=== PATIENT | female | born 1965 | race Caucasian/White ===

== ENCOUNTER 2016-11-07 10:42 | Emergency (ER) | payer OTHER ==
[~2016-11-07] VITALS: Ht 154.9 cm; Wt 73.5 kg
[~2016-11-07 10:42] MED LIST: ALPR0.5T PO; ALPR1TAB2 PO; AMOX875T PO; BUPR150T15 PO; BUSP5POW MC; ERGO500012 PO; IBUP400T PO; OMEP20CA9 PO; OXYC-250 PO; OXYC10TA PO; PARO10OR3 PO; PARO20TA55 PO; PHEN1POW MC; SIMV40TA3 PO; SULF1TAB24 PO; buspar; cholesterol med PO; ibuprofen
--- NOTE | 2016-11-07 11:19 | ED.ADGEN ---
Past History Past Medical History: Depression, GERD, High Cholesterol, Kidney Stones, Other Past Surgical History: No Surgical History, Appendectomy, Cholecystectomy, Hysterectomy, Oophorectomy Smoking: Cigarettes Alcohol Use: Occasionally Drug Use: None Adult General HPI HPI Patient is a 51-year-old female presents emergency department with 1 week history of abdominal pain, back pain, nausea, and vomiting. She has been seen twice at an outside facility. Diagnoses as pyelonephritis and started on Levaquin. She had large workups both times that were otherwise unrevealing. Patient reports that she continues to have nausea and decreased appetite. She has not had a bowel movement in 5 days. Currently, still taking Levaquin. Review of Systems Review of Systems Constitutional: Denies fever or chills [] Eyes: Denies change in visual acuity, redness, or eye pain [] HENT: Denies nasal congestion or sore throat [] Respiratory: Denies cough or shortness of breath [] Cardiovascular: No additional information not addressed in HPI [] GI: Denies abdominal pain, nausea, vomiting, bloody stools or diarrhea [] : Denies dysuria or hematuria [] Musculoskeletal: Denies back pain or joint pain [] Integument: Denies rash or skin lesions [] Neurologic: Denies headache, focal weakness or sensory changes [] Endocrine: Denies polyuria or polydipsia [] Current Medications Current Medications Current Medications Medications (Trade) Dose Ordered Sig/Audrey Start Time Stop Time Status Last Admin Dose Admin Ondansetron HCl (Zofran) 4 mg 1X ONCE 11/07/16 11:30 11/07/16 11:31 DC 11/07/16 11:32 4 MG Sodium Chloride (Iv Sodium Chloride 0.9% 1,000ml) 1,000 ml @ 1,000 mls/hr 1X ONCE 11/07/16 11:30 11/07/16 12:29 11/07/16 11:32 1,000 MLS/HR Allergies Allergies Allergies Coded Allergies Type Severity Reaction Last Updated Verified naproxen Allergy Mild Rash 02/17/15 No Physical Exam Physical Exam Constitutional: Well developed, well nourished, no acute distress, non-toxic appearance. [] HENT: Normocephalic, atraumatic, bilateral external ears normal, oropharynx moist, no oral exudates, nose normal. [] Eyes: PERRLA, EOMI, conjunctiva normal, no discharge. [] Neck: Normal range of motion, no tenderness, supple, no stridor. [] Cardiovascular:Heart rate regular rhythm, no murmur [] Lungs & Thorax: Bilateral breath sounds clear to auscultation [] Abdomen: Bowel sounds normal, soft, diffuse tenderness to palpation without peritoneal signs, no masses, no pulsatile masses. [] Skin: Warm, dry, no erythema, no rash. [] Back: No tenderness, no CVA tenderness. [] Extremities: No tenderness, no cyanosis, no clubbing, ROM intact, no edema. [] Neurologic: Alert and oriented X 3, normal motor function, normal sensory function, no focal deficits noted. [] Psychologic: Affect normal, judgement normal, mood normal. [] Current Patient Data Vital Signs Vital Signs Date Time Temp Pulse Resp B/P Pulse Ox O2 Delivery O2 Flow Rate FiO2 11/07/16 10:42 98.1 108 20 98 Room Air EKG EKG [] Radiology/Procedures Radiology/Procedures KUB interpreted by me, significant amount of stool. [] Course & Med Decision Making Course & Med Decision Making Pertinent Labs and Imaging studies reviewed. (See chart for details) Patient has a exam consistent with constipation given her narcotic and Zofran uses is not surprising. I did offer the patient an enema here in the emergency Department and she declined. She want to go home and take mag citrate and attempt a fleets enema there. She will of course return to emergency department sooner she develops any new or worsening symptoms. [] Final Impression Final Impression Constipation [] Problems: Dragon Disclaimer Dragon Disclaimer This electronic medical record was generated, in whole or in part, using a voice recognition dictation system. CHINYERE HARRIS MD Nov 07, 2016 11:19
[2016-11-07] MEDS ORDERED: IV NORMAL SALINE 1,000ML 1,000 ML IV ONE (11:30)
[2016-11-07] MEDS ORDERED: ONDANSETRON PF 4 MG/2 ML VIAL. IV ONE (11:30)
--- NOTE | 2016-11-07 12:05 | RAD ---
Acute abdomen series History: Diffuse abdominal pain, nausea and vomiting. Comparison: March 07, 2015. Findings: Frontal view of the chest. Cardiac silhouette appears within normal limits for size. No pneumoperitoneum or pneumothorax is identified. No acute infiltrate is seen. Supine and upright views of the abdomen. No dilated loops of bowel are seen. Cholecystectomy clips are present. Moderate colonic stool seen. Suture material is seen within the pelvis. Impression: No acute abnormality identified in the chest or abdomen.
[2016-11-07 12:20] VITALS: BP 133/77
== END 2016-11-07 12:25 | disposition home or self-care (01) ==
LOC: ER 10:42
DX: K59.00 Constipation, unspecified (principal); R11.2 Nausea with vomiting, unspecified; M54.9 Dorsalgia, unspecified; K21.9 Gastro-esophageal reflux disease without esophagitis; E78.00 Pure hypercholesterolemia, unspecified; F17.210 Nicotine dependence, cigarettes, uncomplicated; Z87.442 Personal history of urinary calculi; Z90.49 Acquired absence of other specified parts of digestive tract; Z90.710 Acquired absence of both cervix and uterus; Z90.721 Acquired absence of ovaries, unilateral; Z88.6 Allergy status to analgesic agent
CPT/HCPCS: 74022; 96374; 99284; J2405; 96361; J7030

== ENCOUNTER 2017-01-04 17:19 | Emergency (ER) | payer OTHER ==
[~2017-01-04] VITALS: Ht 154.9 cm; Wt 76.8 kg
[~2017-01-04 17:19] MED LIST changes: -ERGO500012 PO; +ERGO500027 PO; -IBUP400T PO; +IBUP400T18 PO; -OXYC-250 PO; +OXYC-328 PO; -PARO20TA55 PO; +PARO20TA99 PO
[2017-01-04] MEDS ORDERED: IV NORMAL SALINE 1,000ML 1,000 ML IV SCH (18:25)
[2017-01-04] MEDS ORDERED: fentaNYL PF 100 MCG/2 ML VIAL IV PRN (18:30)
--- NOTE | 2017-01-04 18:32 | ED.ADGEN ---
Past History Past Medical History: GERD, High Cholesterol, Migraines Past Surgical History: Appendectomy, Hysterectomy, Other Smoking: Cigarettes Alcohol Use: None Drug Use: None Adult General Chief Complaint Chief Complaint Abdominal pain HPI HPI Patient is a 51 year old and female who presents with epigastric pain for the last 2 days. She states it's constant in nature and is made worse right after she eats. He states it feels better when she lays on her right side. She points her epigastric area. She states she's been constipated for the last 2 days and hasn't had any bowel movement. She states she has vomited several times. She denies any fevers chills. She has had a appendectomy, cholecystectomy, hysterectomy in the past. She saw Dr. Gomez today who wanted to be evaluated in the ER. The sig narcotic pain medicines for her migraines but states she hasn't done that for 2-3 days. Showing doesn't once or twice a week. Review of Systems Review of Systems Constitutional: Denies fever or chills [] Eyes: Denies change in visual acuity, redness, or eye pain [] HENT: Denies nasal congestion or sore throat [] Respiratory: Denies cough or shortness of breath [] Cardiovascular: No additional information not addressed in HPI [] GI: Denies bloody stools or diarrhea, positive for abdominal pain, nausea, vomiting, : Denies dysuria or hematuria [] Musculoskeletal: Denies back pain or joint pain [] Integument: Denies rash or skin lesions [] Neurologic: Denies headache, focal weakness or sensory changes [] Endocrine: Denies polyuria or polydipsia [] Current Medications Current Medications Current Medications Medications (Trade) Dose Ordered Sig/Audrey Start Time Stop Time Status Last Admin Dose Admin Fentanyl Citrate (Fentanyl 2ml Vial) 50 mcg PRN Q15MIN PRN 01/04/17 18:30 01/05/17 18:29 01/04/17 19:02 50 MCG Info (Do NOT chart on this entry -- for MONITORING) 1 each PRN DAILY PRN 01/04/17 18:45 01/06/17 18:44 Iohexol (Omnipaque 300 Mg/ml) 75 ml 1X ONCE 01/04/17 18:45 01/04/17 18:46 DC 6/1/17 19:13 75 ML Sodium Chloride 1,000 ml @ 1,000 mls/hr Q1H 01/04/17 18:25 01/04/17 19:24 DC 01/04/17 19:01 1,000 MLS/HR Allergies Allergies Allergies Coded Allergies Type Severity Reaction Last Updated Verified naproxen Allergy Mild Rash 02/17/15 No Physical Exam Physical Exam Constitutional: Well developed, well nourished, no acute distress, non-toxic appearance. [] HENT: Normocephalic, atraumatic, bilateral external ears normal, oropharynx moist, no oral exudates, nose normal. [] Eyes: PERRLA, EOMI, conjunctiva normal, no discharge. [] Neck: Normal range of motion, no tenderness, supple, no stridor. [] Cardiovascular:Heart rate regular rhythm, no murmur [] Lungs & Thorax: Bilateral breath sounds clear to auscultation [] Abdomen: Bowel sounds hyperactive and high-pitched, soft, mild tenderness palpation diffusely, no rebound or guarding, no masses, no pulsatile masses. [] Skin: Warm, dry, no erythema, no rash. [] Back: No tenderness, no CVA tenderness. [] Extremities: No tenderness, no cyanosis, no clubbing, ROM intact, no edema. [] Neurologic: Alert and oriented X 3, normal motor function, normal sensory function, no focal deficits noted. [] Psychologic: Affect normal, judgement normal, mood normal. [] Current Patient Data Vital Signs Vital Signs Date Time Temp Pulse Resp B/P (MAP) Pulse Ox O2 Delivery O2 Flow Rate FiO2 01/04/17 19:02 20 98 Room Air 01/04/17 17:51 98.4 65 Lab Results Laboratory Tests Test 01/04/17 18:55 01/04/17 19:10 White Blood Count 13.3 x10^3/uL (4.0-11.0) H Red Blood Count 4.88 x10^6/uL (3.50-5.40) Hemoglobin 14.1 g/dL (12.0-15.5) Hematocrit 42.0 % (36.0-47.0) Mean Corpuscular Volume 86 fL (79-100) Mean Corpuscular Hemoglobin 29 pg (25-35) Mean Corpuscular Hemoglobin Concent 34 g/dL (31-37) Red Cell Distribution Width 14.3 % (11.5-14.5) Platelet Count 300 x10^3/uL (140-400) Neutrophils (%) (Auto) 62 % (31-73) Lymphocytes (%) (Auto) 29 % (24-48) Monocytes (%) (Auto) 7 % (0-9) Eosinophils (%) (Auto) 1 % (0-3) Basophils (%) (Auto) 1 % (0-3) Neutrophils # (Auto) 8.2 x10^3uL (1.8-7.7) H Lymphocytes # (Auto) 3.9 x10^3/uL (1.0-4.8) Monocytes # (Auto) 0.9 x10^3/uL (0.0-1.1) Eosinophils # (Auto) 0.2 x10^3/uL (0.0-0.7) Basophils # (Auto) 0.1 x10^3/uL (0.0-0.2) Prothrombin Time 10.0 SEC (9.4-11.4) Prothrombin Time INR 1.0 (0.9-1.1) PTT 26 SEC (23-33) Sodium Level 138 mmol/L (136-145) Potassium Level 4.1 mmol/L (3.5-5.1) Chloride Level 102 mmol/L (98-107) Carbon Dioxide Level 30 mmol/L (21-32) Anion Gap 6 (6-14) Blood Urea Nitrogen 10 mg/dL (7-20) Creatinine 0.8 mg/dL (0.6-1.0) Estimated GFR (Cockcroft-Gault) 75.6 BUN/Creatinine Ratio 13 (6-20) Glucose Level 85 mg/dL (70-99) Calcium Level 8.9 mg/dL (8.5-10.1) Total Bilirubin 0.3 mg/dL (0.2-1.0) Aspartate Amino Transferase (AST) 13 U/L (15-37) L Alanine Aminotransferase (ALT) 28 U/L (14-59) Alkaline Phosphatase 135 U/L (46-116) H Creatine Kinase 52 U/L (26-192) Creatine Kinase MB (Mass) < 0.5 ng/mL (0.0-3.6) Creatine Kinase MB Relative Index 1.0 % (0-4) Troponin I Quantitative < 0.017 ng/mL (0-0.055) Total Protein 7.3 g/dL (6.4-8.2) Albumin 3.7 g/dL (3.4-5.0) Albumin/Globulin Ratio 1.0 (1.0-1.7) Lipase 81 U/L (73-393) Urine Collection Type Unknown Urine Color Yellow Urine Clarity Hazy Urine pH 7.0 Urine Specific [place] 1.010 Urine Protein Neg (NEG-TRACE) Urine Glucose (UA) Neg mg/dL (NEG) Urine Ketones (Stick) Neg mg/dL (NEG) Urine Blood Trace (NEG) Urine Nitrite Neg (NEG) Urine Bilirubin Neg (NEG) Urine Urobilinogen Dipstick 0.2 mg/dL (0.2 mg/dL) Urine Leukocyte Esterase Neg (NEG) Urine RBC 1-2 /HPF (0-2) Urine WBC 1-4 /HPF (0-4) Urine Squamous Epithelial Cells Mod /LPF Urine Bacteria 0 /HPF (0-FEW) Urine Mucus Mod /LPF Urine Opiates Screen Pos (NEG) Urine Methadone Screen Neg (NEG) Urine Barbiturates Neg (NEG) Urine Phencyclidine Screen Neg (NEG) Urine Amphetamine/Methamphetamine Neg (NEG) Urine Benzodiazepines Screen Pos (NEG) Urine Cocaine Screen Neg (NEG) Urine Cannabinoids Screen Neg (NEG) Urine Ethyl Alcohol Neg (NEG) EKG EKG EKG shows sinus rhythm with rate of [address] elevations or T-wave inversions, normal axis, normal axis, QTC 447, as interpreted by me. Radiology/Procedures Radiology/Procedures [address] [address] IMAGING REPORT Signed PATIENT: SANTI MIRANDA ACCOUNT: [id number] : 1965 LOCATION: ER AGE: 51 SEX: F EXAM STATUS: REG ER ORD. PHYSICIAN: SHANIKA LITTLEJOHN MD REASON: pain PROCEDURE: CT ABD PELV W/ IV CONTRST ONLY INDICATION: MID-UPPER ABD PAIN, N/V/D, HX MARCIE, APPY, HYSTER COMPARISON: August 06, 2013 TECHNIQUE: Axial CT images were obtained through the abdomen and pelvis with intravenous contrast. One or more of the following individualized dose reduction techniques were utilized for this examination: 1. Automated exposure control; 2. Adjustment of the mA and/or kV according to patient size; 3. Use of iterative reconstruction technique. FINDINGS: Abdomen: Chest Base: Partially imaged without gross abnormality. Vessels: Mild to moderate calcific atherosclerosis. Liver/Biliary: Postcholecystectomy changes with minimal prominence of biliary tree which is commonly seen postcholecystectomy. Pancreas: No peripancreatic edema. Spleen: Normal. Kidneys/Adrenal: No hydronephrosis. GI: No free air. No bowel dilation to suggest obstruction. Pelvis: Bladder: No definite adjacent inflammation. Degenerative changes spine IMPRESSION: 1. No dilated loops of bowel suggest obstruction. Electronically signed by: Laquita Gage MD (01/04/2017 7:48 PM) DICTATED AND SIGNED BY: LAQUITA GAGE MD DATE: 01/04/171941 CC: SHANIKA LITTLEJOHN MD; PCP,NO ~ Course & Med Decision Making Course & Med Decision Making Pertinent Labs and Imaging studies reviewed. (See chart for details) Labs, CT scan does not show any acute abnormalities. She does have a lot of stool the CT scan and this could be secondary to constipation. Spoke with Dr. Doyle whose okay the patient be discharged home and follow-up as an outpatient. The patient states she has pain meds at home. She is agreeable being discharged home. I did offer admission however she feels more comfortable going home. Return precautions given for worsening pain, uncontrolled nausea vomiting, fevers or other concerns. Final Impression Final Impression Abdominal pain Problems: Dragon Disclaimer Dragon Disclaimer This electronic medical record was generated, in whole or in part, using a voice recognition dictation system. SHANIKA LITTLEJOHN MD Jan 04, 2017 18:32
[2017-01-04] MEDS ORDERED: IOHEXOL 300 MG/ML 75 ML VIAL. IV ONE (18:45)
[2017-01-04] MEDS ORDERED: CONTRAST GIVEN MC PRN (18:45)
[2017-01-04 19:14] LABS: BASO # 0.1 x10^3/uL (0.0-0.2); BASO % 1 % (0-3); EOS # 0.2 x10^3/uL (0.0-0.7); EOS % 1 % (0-3); HEMOGLOBIN 14.1 g/dL (12.0-15.5); LYMPH # 3.9 x10^3/uL (1.0-4.8); LYMPH % 29 % (24-48); MEAN CORPUSCULAR HEMOGLOBIN 29 pg (25-35); MEAN CORPUSCULAR HGB CONC 34 g/dL (31-37); MEAN CORPUSCULAR VOLUME 86 fL (79-100); MONO # 0.9 x10^3/uL (0.0-1.1); MONO % 7 % (0-9); NEUT # 8.2 x10^3uL (1.8-7.7); NEUT % 62 % (31-73); PLATELET COUNT 300 x10^3/uL (140-400); RED BLOOD COUNT 4.88 x10^6/uL (3.50-5.40); RED CELL DISTRIBUTION WIDTH 14.3 % (11.5-14.5); WHITE BLOOD COUNT 13.3 x10^3/uL (4.0-11.0)
[2017-01-04 19:39] LABS: ALBUMIN 3.7 g/dL (3.4-5.0); ALK PHOS 135 U/L (46-116); ALT (SGPT) 28 U/L (14-59); ANION GAP 6 (6-14); AST (SGOT) 13 U/L (15-37); BLOOD UREA NITROGEN 10 mg/dL (7-20); BUN/CREATININE RATIO 13 (6-20); CALCIUM 8.9 mg/dL (8.5-10.1); CARBON DIOXIDE 30 mmol/L (21-32); CHLORIDE 102 mmol/L (98-107); CREATINE KINASE 52 U/L (26-192); CREATININE 0.8 mg/dL (0.6-1.0); GFR 75.6; GLUCOSE 85 mg/dL (70-99); LIPASE 81 U/L (73-393); POTASSIUM 4.1 mmol/L (3.5-5.1); SODIUM 138 mmol/L (136-145); TOTAL BILIRUBIN 0.3 mg/dL (0.2-1.0); TOTAL PROTEIN 7.3 g/dL (6.4-8.2)
--- NOTE | 2017-01-04 19:52 | RAD ---
INDICATION: MID-UPPER ABD PAIN, N/V/D, HX MARCIE, APPY, HYSTER COMPARISON: August 06, 2013 TECHNIQUE: Axial CT images were obtained through the abdomen and pelvis with intravenous contrast. One or more of the following individualized dose reduction techniques were utilized for this examination: 1. Automated exposure control; 2. Adjustment of the mA and/or kV according to patient size; 3. Use of iterative reconstruction technique. FINDINGS: Abdomen: Chest Base: Partially imaged without gross abnormality. Vessels: Mild to moderate calcific atherosclerosis. Liver/Biliary: Postcholecystectomy changes with minimal prominence of biliary tree which is commonly seen postcholecystectomy. Pancreas: No peripancreatic edema. Spleen: Normal. Kidneys/Adrenal: No hydronephrosis. GI: No free air. No bowel dilation to suggest obstruction. Pelvis: Bladder: No definite adjacent inflammation. Degenerative changes spine IMPRESSION: 1. No dilated loops of bowel suggest obstruction. Electronically signed by: Simón Harrison MD (01/04/2017 7:48 PM)
[2017-01-04 19:58] LABS: AMPHETAMINE/METHAMPHETAMINE NEG (NEG); BARBITURATES NEG (NEG); BENZODIAZEPINES POS (NEG); CANNABINOIDS NEG (NEG); COCAINE NEG (NEG); METHADONE NEG (NEG); OPIATES POS (NEG); PHENCYCLIDINE NEG (NEG)
[2017-01-04 20:10] LABS: BILIRUBIN,URINE NEG (NEG); CLARITY,URINE HAZY; COLOR,URINE YELLOW; GLUCOSE,URINE NEG (NEG); NITRITE,URINE NEG (NEG); UROBILINOGEN,URINE 0.2 mg/dL (0.2 mg/dL)
[2017-01-04 20:11] LABS: BACTERIA,URINE 0 /HPF (0-FEW); SQUAMOUS EPITHELIAL CELL,UR MOD /LPF
--- NOTE | 2017-01-04 21:47 | EKG ---
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 RI6.01 Unconfirmed report Compared to ECG 08/13/2015 22:47:48 No significant changes Electronically Signed On 01-10-2017 9:23:11 CDT by Bradley Martines
[2017-01-04 21:49] VITALS: BP 124/87
== END 2017-01-04 22:12 | disposition home or self-care (01) ==
LOC: ER 17:19
DX: R10.13 Epigastric pain (principal); K59.00 Constipation, unspecified; R11.10 Vomiting, unspecified; E11.9 Type 2 diabetes mellitus without complications; K21.9 Gastro-esophageal reflux disease without esophagitis; E78.00 Pure hypercholesterolemia, unspecified; G43.909 Migraine, unspecified, not intractable, without status migrainosus; F17.210 Nicotine dependence, cigarettes, uncomplicated; Z90.49 Acquired absence of other specified parts of digestive tract; Z90.710 Acquired absence of both cervix and uterus; Z88.6 Allergy status to analgesic agent
CPT/HCPCS: 36415; 74177; 80053; 80305; 81001; 82553; 83690; 84484; 85027; 85610; 85730; 93005; 96361; 96374; 99285; J3010; Q9967; G0481; J7030

== ENCOUNTER → 2017-01-25 | Outpatient (CLI) | payer OTHER ==
[2017-01-04 21:49] VITALS: BP 124/87
--- NOTE | 2017-01-25 11:47 | RAD ---
Indication upper abdominal pain. Constipation diarrhea. Recent colonoscopy. Supine and upright films of the abdomen were obtained and are compared to an examination 11/07/2016. Note is made of a CT examination of the abdomen and pelvis 3 weeks ago. The lung bases are clear. There is no free air. The abdominal gas pattern has a nonobstructive appearance. Clips are seen in the gallbladder fossa. No organomegaly or abnormal calculi are seen. IMPRESSION: No acute or significant finding seen on plain films of the abdomen
== END | disposition home or self-care (01) ==
LOC: DXRADRC 11:23
PROVIDERS: ATTEND Family Medicine
DX: K59.00 Constipation, unspecified (principal); R19.7 Diarrhea, unspecified
CPT/HCPCS: 74020

== ENCOUNTER → 2017-04-16 | Outpatient (CLI) | payer OTHER ==
--- NOTE | 2017-04-16 15:54 | RAD ---
Indication back pain. AP and lateral views of the lumbar spine were obtained as well as a coned view targeted to the lumbosacral junction. Vertebral height is well maintained. Alignment is unremarkable. There is slight disc space narrowing at L2-3 with a small anterior osteophyte at the lower and ventral aspect of L2. No acute finding is seen. IMPRESSION: Minimal degenerative change predominantly centered at L2-3
== END | disposition home or self-care (01) ==
LOC: DXRADRC 15:37
PROVIDERS: ATTEND Nurse Practitioner Family
DX: M47.896 Other spondylosis, lumbar region (principal); M25.78 Osteophyte, vertebrae
CPT/HCPCS: 72100

== ENCOUNTER 2017-05-03 14:29 | Observation (INO) | payer OTHER ==
[~2017-05-03] VITALS: Ht 154.9 cm; Wt 79.5 kg
[2017-05-03] MEDS ORDERED: 0.9 % SODIUM CHLORIDE 10 ML DISP.SYRIN. IV PRN (14:45)
[2017-05-03] MEDS ORDERED: IV NORMAL SALINE 1,000ML 1,000 ML IV SCH ×2 (15:00→17:00)
[2017-05-03] MEDS ORDERED: ASPIRIN 81 MG TAB.CHEW PO ONE (15:00)
--- NOTE | 2017-05-03 15:05 | PHYS DOC ---
Past History Past Medical History: Anxiety, GERD, High Cholesterol, Migraines Past Surgical History: Appendectomy, Hysterectomy, Other Smoking: Cigarettes Alcohol Use: None Drug Use: None Adult General Chief Complaint Chief Complaint: Neck Pain HPI HPI Patient is a pleasant 52-year-old female with a history of untreated hypertension, high cholesterol, and anxiety presents with left shoulder pain left scapular pain that began 2 hours prior to arrival. Patient has a significant family history with a father who had his first heart attack at age 37 multiple brothers and sisters who have multiple strokes unrelated to 50 and a sister who just recently had a heart attack at age 50s well. She's never had these symptoms before and recently started a new job. She denies any new shortness of breath or decreased exercise tolerance but noted today about 1:45 PM increasing aching in her left shoulder with anterior chest pain on the left. It did radiate to the lateral part of the shoulder down the arm and the posterior shoulder blade. She denies any night sweats, weight loss, cough, URI symptoms. She denies any nausea, vomiting, shortness of breath at this time. She denies any travel outside the country or recent antibiotics. She also further denies any trauma or worsening symptoms with exertion or motion. The pain is somewhat reproduced with certain direct pressure points on the upper left shoulder blade. But not exactly reproducible. At this time is 8 of 10 Differential diagnosis for chest pain: Pericarditis, myocarditis, endocarditis, pneumothorax, pneumonia, aortic dissection, esophageal spasm, esophagitis, peptic ulcer disease, acute coronary syndrome, mediastinitis, Boerhaave syndrome , musculoskeletal chest wall pain, costochondritis, intercostal strain, rib fracture, pulmonary contusion, pneumonitis, pleural effusion, pericardial effusion, pericardial tamponode, and pleurisy. Review of Systems Review of Systems Constitutional: Denies fever or chills [] Eyes: Denies change in visual acuity, redness, or eye pain [] HENT: Denies nasal congestion or sore throat [] Respiratory: Denies cough or shortness of breath [] Cardiovascular: No additional information not addressed in HPI [] GI: Denies abdominal pain, nausea, vomiting, bloody stools or diarrhea [] : Denies dysuria or hematuria [] Musculoskeletal: sHe describes some upper left shoulder pain. Integument: Denies rash or skin lesions [] Neurologic: Denies headache, focal weakness or sensory changes [] Psych: Patient does feel somewhat anxious and she's not had an attack in 10 years. Current Medications Current Medications Current Medications Medications (Trade) Dose Ordered Sig/Audrey Start Time Stop Time Status Last Admin Dose Admin Aspirin (Children'S Aspirin) 324 mg 1X ONCE 05/03/17 15:00 05/03/17 15:01 DC Sodium Chloride (Normal Saline Flush) 10 ml QSHIFT PRN 05/03/17 14:45 Allergies Allergies Allergies Coded Allergies Type Severity Reaction Last Updated Verified naproxen Allergy Mild Rash 02/17/15 No Physical Exam Physical Exam Vital signs recorded on the chart patient noted to be hypertensive. Constitutional: Well developed, well nourished, no acute distress, non-toxic appearance. [] HENT: Normocephalic, atraumatic, bilateral external ears normal, oropharynx moist, no oral exudates, nose normal. [] Eyes: PERRLA, EOMI, conjunctiva normal, no discharge. [] Neck: Normal range of motion, no tenderness, supple, no stridor. [] Cardiovascular:Heart rate regular rhythm, no murmur does have some reproducible chest wall pain on exam over the left upper chest. Patient also has tenderness palpation over the superior and medial aspect of the scapula and is somewhat reproducible. There is no external owens, no trauma no rash. Lungs & Thorax: Bilateral breath sounds clear to auscultation [] Abdomen: Bowel sounds normal, soft, no tenderness, no masses, no pulsatile masses. [] Skin: Warm, dry, no erythema, no rash. [] Back: Patient has no tenderness to palpation over the midline of the T-spine or C-spine. She does have a negative Spurling's test, but she does have tenderness to palpation over the scapula Extremities: No tenderness, no cyanosis, no clubbing, ROM intact, no edema. [] Neurologic: Alert and oriented X 3, normal motor function, normal sensory function, no focal deficits noted. [] Psychologic: Affect normal, judgement normal, mood normal. [] Current Patient Data Vital Signs Vital Signs Date Time Temp Pulse Resp B/P (MAP) Pulse Ox O2 Delivery O2 Flow Rate FiO2 05/03/17 14:29 98.0 92 18 95 Room Air Vital Signs Date Time Temp Pulse Resp B/P (MAP) Pulse Ox O2 Delivery O2 Flow Rate FiO2 05/03/17 16:15 16 98 Room Air 05/03/17 14:29 98.0 92 Lab Results Laboratory Tests Test 05/03/17 14:53 05/03/17 15:45 White Blood Count 12.1 x10^3/uL (4.0-11.0) H Red Blood Count 4.72 x10^6/uL (3.50-5.40) Hemoglobin 14.1 g/dL (12.0-15.5) Hematocrit 41.0 % (36.0-47.0) Mean Corpuscular Volume 87 fL (79-100) Mean Corpuscular Hemoglobin 30 pg (25-35) Mean Corpuscular Hemoglobin Concent 35 g/dL (31-37) Red Cell Distribution Width 13.7 % (11.5-14.5) Platelet Count 371 x10^3/uL (140-400) Neutrophils (%) (Auto) 64 % (31-73) Lymphocytes (%) (Auto) 28 % (24-48) Monocytes (%) (Auto) 7 % (0-9) Eosinophils (%) (Auto) 2 % (0-3) Basophils (%) (Auto) 1 % (0-3) Neutrophils # (Auto) 7.7 x10^3uL (1.8-7.7) Lymphocytes # (Auto) 3.3 x10^3/uL (1.0-4.8) Monocytes # (Auto) 0.8 x10^3/uL (0.0-1.1) Eosinophils # (Auto) 0.2 x10^3/uL (0.0-0.7) Basophils # (Auto) 0.1 x10^3/uL (0.0-0.2) Sodium Level 139 mmol/L (136-145) Potassium Level 3.9 mmol/L (3.5-5.1) Chloride Level 103 mmol/L (98-107) Carbon Dioxide Level 26 mmol/L (21-32) Anion Gap 10 (6-14) Blood Urea Nitrogen 8 mg/dL (7-20) Creatinine 0.7 mg/dL (0.6-1.0) Estimated GFR (Cockcroft-Gault) 87.9 BUN/Creatinine Ratio 11 (6-20) Glucose Level 93 mg/dL (70-99) Calcium Level 8.8 mg/dL (8.5-10.1) Magnesium Level 2.0 mg/dL (1.8-2.4) Total Bilirubin 0.2 mg/dL (0.2-1.0) Aspartate Amino Transferase (AST) 14 U/L (15-37) L Alanine Aminotransferase (ALT) 30 U/L (14-59) Alkaline Phosphatase 150 U/L (46-116) H Troponin I Quantitative < 0.017 ng/mL (0-0.055) [id number]-Type Natriuretic Peptide 18 pg/mL (0-124) Total Protein 7.1 g/dL (6.4-8.2) Albumin 3.7 g/dL (3.4-5.0) Albumin/Globulin Ratio 1.1 (1.0-1.7) Lipase 103 U/L (73-393) Urine Collection Type Unknown Urine Color Yellow Urine Clarity Clear Urine pH 7.0 Urine Specific [place] 1.010 Urine Protein Neg (NEG-TRACE) Urine Glucose (UA) Neg mg/dL (NEG) Urine Ketones (Stick) Neg mg/dL (NEG) Urine Blood Trace (NEG) Urine Nitrite Neg (NEG) Urine Bilirubin Neg (NEG) Urine Urobilinogen Dipstick 0.2 mg/dL (0.2 mg/dL) Urine Leukocyte Esterase Neg (NEG) Urine RBC 1-2 /HPF (0-2) Urine WBC 1-4 /HPF (0-4) Urine Squamous Epithelial Cells Few /LPF Urine Bacteria 0 /HPF (0-FEW) Urine Yeast Present /HPF EKG EKG []EKG timed to 2:36 PM read by ms Dr. Darnell demonstrates a heart rate of 92 with PMD QRS this is sinus rhythm NM interval 146 which is normal, QRS width which is 80 which is normal, QTC which is 458 which is normal patient has normal looking EKG with no ST segment T-wave changes consistent with acute ischemia. She does have a nonspecific T-wave flattening in V1 and lead 3 which may be a normal variant. There is no concordant lead flattening or evidence of ischemia. Radiology/Procedures Radiology/Procedures [] IMAGING REPORT Signed PATIENT: SANTI MIRANDA ACCOUNT: [id number] : 1965 LOCATION: ER AGE: 52 SEX: F EXAM STATUS: REG ER ORD. PHYSICIAN: RACHEL DARNELL MD REASON: shoulder and neck pain PROCEDURE: CHEST PA & LATERAL 2 views of the Chest 05/03/2017 4:45 PM Indication: shoulder and neck pain Comparison: Abdominal series November 07, 2016 Findings: Minimal discoid atelectasis appears to be present in the basilar left upper lobe . No other focal consolidation or infiltrate is identified. There is no effusion or pneumothorax. The cardiomediastinal silhouette and pulmonary vasculature are within normal limits. No osseous abnormality is identified. Impression: Minimal left basilar discoid atelectasis. DICTATED AND SIGNED BY: MIRELA ALEJO MD DATE: 05/03/171516 CC: RACHEL DARNELL MD; BEVERLY BARNARD STOCKBROKING DEALER ~ Course & Med Decision Making Course & Med Decision Making Pertinent Labs and Imaging studies reviewed. (See chart for details) patient's EKG done on arrival read by me at 2:36 PM 04/25/2017 demonstrates sinus rhythm at 92 with repeat every QRS is normal sinus rhythm with a NM interval of 146 which is normal, QRS interval is 80 which is normal QTC which 458 which is also normal. This is a normal EKG with no ST segment T-wave changes consistent with acute ischemia. Patient presents with shoulder pain, neck pain and anterior chest pain which is concerning for possible ischemic event. Patient significant family historyDifferential diagnosis for chest pain: Pericarditis, myocarditis, endocarditis, pneumothorax, pneumonia, aortic dissection, esophageal spasm, esophagitis, peptic ulcer disease, acute coronary syndrome, mediastinitis, Boerhaave syndrome, musculoskeletal chest wall pain, costochondritis, intercostal strain, rib fracture, pulmonary contusion, pneumonitis, pleural effusion, pericardial effusion, pericardial tamponode, and pleurisy. Was considered upon arrival given her family history, the heart score history was provided patient is at moderate risk based on scoring protocols I gave her slightly suspicious, normal EKG, age, significant risk factors they gave her score 4. This meant that although she was not demonstrating any signs of heart injury at this time she would benefit from inpatient observation stay serial enzymes and a cardiology evaluation. She was willing to follow-up here in the emergency department and with the refinery operator alkylation prearranged. So she's been admitted to the hospital. History: Highly suspicious 2 points moderately suspicious 1. slightly suspicious 0 point EKG: ST segment depression 2. nonspecific repolarization disturbance 1. normal 0 point Age: Greater than 65 2 points, 65-45 1., less than 45 years old 0 points Risk factors:> 3 risk factors 2 points, 1-2 risk factors one point, no risk factors 0 point Troponin: > 2 times normal 2 points, 1-2 times normal 1., normal limits 0 point Total score: Score % pts MACE/n MACE Policy 0-3 32% 1.9% 0.05% Discharge 4-6 51% 413/3136 13% 1.3% Observation Risk management 7-10 17% 518/1045 50% 2.8% Observation Treatment, CAG []Golf Course Architect note: saw superintendent physician Dr. Lori WILL Golf Course Architect called at of the service service: Approximately 4:45 PM Consult called back at 4:45 PM Discussed the case I presented and they agreed with admission. Time of acceptance for 4:45 PM Dragon Disclaimer Dragon Disclaimer This chart was dictated in whole or in part using Voice Recognition software in a busy, high-work load, and often noisy Emergency Department environment. It may contain unintended and wholly unrecognized errors or omissions. Departure Departure: Impression: Primary Impression: Chest pain Additional Impressions: Neck pain Hypertension Shoulder pain Disposition: ADMITTED INPATIENT Admitting Physician: Luis Simon Condition: GUARDED Referrals: BEVERLY BARNARD APRN (PCP) Problem Qualifiers RACHEL DARNELL MD May 03, 2017 15:05
[2017-05-03 15:16] LABS: BASO # 0.1 x10^3/uL (0.0-0.2); BASO % 1 % (0-3); EOS # 0.2 x10^3/uL (0.0-0.7); EOS % 2 % (0-3); HEMOGLOBIN 14.1 g/dL (12.0-15.5); LYMPH # 3.3 x10^3/uL (1.0-4.8); LYMPH % 28 % (24-48); MEAN CORPUSCULAR HEMOGLOBIN 30 pg (25-35); MEAN CORPUSCULAR HGB CONC 35 g/dL (31-37); MEAN CORPUSCULAR VOLUME 87 fL (79-100); MONO # 0.8 x10^3/uL (0.0-1.1); MONO % 7 % (0-9); NEUT # 7.7 x10^3uL (1.8-7.7); NEUT % 64 % (31-73); PLATELET COUNT 371 x10^3/uL (140-400); RED BLOOD COUNT 4.72 x10^6/uL (3.50-5.40); RED CELL DISTRIBUTION WIDTH 13.7 % (11.5-14.5); WHITE BLOOD COUNT 12.1 x10^3/uL (4.0-11.0)
--- NOTE | 2017-05-03 15:21 | RAD ---
2 views of the Chest 05/03/2017 4:45 PM Indication: shoulder and neck pain Comparison: Abdominal series November 07, 2016 Findings: Minimal discoid atelectasis appears to be present in the basilar left upper lobe . No other focal consolidation or infiltrate is identified. There is no effusion or pneumothorax. The cardiomediastinal silhouette and pulmonary vasculature are within normal limits. No osseous abnormality is identified. Impression: Minimal left basilar discoid atelectasis.
[2017-05-03 15:31] LABS: ALBUMIN 3.7 g/dL (3.4-5.0); ALBUMIN/GLOBULIN RATIO 1.1 (1.0-1.7); CALCIUM 8.8 mg/dL (8.5-10.1); CREATININE 0.7 mg/dL (0.6-1.0); GFR 87.9; POTASSIUM 3.9 mmol/L (3.5-5.1); TOTAL BILIRUBIN 0.2 mg/dL (0.2-1.0); TOTAL PROTEIN 7.1 g/dL (6.4-8.2)
[2017-05-03] MEDS ORDERED: HYDROmorphone PF 1 MG/ML DISP.SYRIN IV ONE (15:40)
--- NOTE | 2017-05-03 16:00 | EKG ---
[address] [address] Test Date: 2017-05-03 Test Time: 14:36:33 Pat Name: SANTI MIRANDA Department: Room: Gender: F Cloth Grader: : 1965 Requested By: RACHEL DARNELL Order Number: [id number] Reading MD: Bradley Martines Measurements Intervals [place] Rate: 92 P: 39 [place]: 146 QRS: 51 QRSD: 80 T: 22 QT: 366 QTc: 458 Interpretive Statements SINUS RHYTHM NORMAL ECG RI6.01 Compared to ECG 01/04/2017 18:41:16 ST (T wave) deviation no longer present Electronically Signed On 05-23-2017 10:15:20 CDT by Bradley Martines
[2017-05-03 16:17] LABS: BACTERIA,URINE 0 /HPF (0-FEW); BILIRUBIN,URINE NEG (NEG); CLARITY,URINE CLEAR; COLOR,URINE YELLOW; GLUCOSE,URINE NEG (NEG); NITRITE,URINE NEG (NEG); SQUAMOUS EPITHELIAL CELL,UR FEW /LPF; UROBILINOGEN,URINE 0.2 mg/dL (0.2 mg/dL)
[2017-05-03 16:19] LABS: YEAST,URINE PRESENT /HPF
[2017-05-03] MEDS ORDERED: HYDROmorphone PF 1 MG/ML DISP.SYRIN IV PRN (16:45)
[2017-05-03] MEDS ORDERED: ONDANSETRON PF 4 MG/2 ML VIAL. IV PRN (16:45)
[2017-05-03 17:27] VITALS: BP 131/83
== END 2017-05-03 17:00 | disposition left against medical advice (07) ==
LOC: ER 14:29 → ICU 16:44
PROVIDERS: ADMIT Internal Medicine; ATTEND Internal Medicine
DX: R07.9 Chest pain, unspecified (principal); M25.512 Pain in left shoulder; M54.2 Cervicalgia; I10 Essential (primary) hypertension; F41.9 Anxiety disorder, unspecified; E78.00 Pure hypercholesterolemia, unspecified; G43.909 Migraine, unspecified, not intractable, without status migrainosus; K21.9 Gastro-esophageal reflux disease without esophagitis; F17.210 Nicotine dependence, cigarettes, uncomplicated; Z82.3 Family history of stroke
CPT/HCPCS: 36415; 71020; 80053; 81001; 83690; 83735; 83880; 84443; 84484; 85025; 93005; 96361; 96374; 99285; G0378; J1170; G0379; J7030

== ENCOUNTER → 2017-08-01 | Outpatient (CLI) | payer OTHER ==
[2017-08-01 12:29] LABS: BASO # 0.1 x10^3/uL (0.0-0.2); BASO % 1 % (0-3); EOS # 0.2 x10^3/uL (0.0-0.7); EOS % 2 % (0-3); HEMATOCRIT 44.1 % (36.0-47.0); HEMOGLOBIN 14.9 g/dL (12.0-15.5); LYMPH # 2.8 x10^3/uL (1.0-4.8); LYMPH % 24 % (24-48); MEAN CORPUSCULAR HEMOGLOBIN 30 pg (25-35); MEAN CORPUSCULAR HGB CONC 34 g/dL (31-37); MEAN CORPUSCULAR VOLUME 88 fL (79-100); MONO # 0.7 x10^3/uL (0.0-1.1); MONO % 6 % (0-9); NEUT # 7.9 x10^3uL (1.8-7.7); NEUT % 68 % (31-73); PLATELET COUNT 377 x10^3/uL (140-400); RED BLOOD COUNT 5.02 x10^6/uL (3.50-5.40); RED CELL DISTRIBUTION WIDTH 13.6 % (11.5-14.5); WHITE BLOOD COUNT 11.7 x10^3/uL (4.0-11.0)
[2017-08-01 12:44] LABS: ALBUMIN 4.1 g/dL (3.4-5.0); ALBUMIN/GLOBULIN RATIO 1.1 (1.0-1.7); CREATININE 0.8 mg/dL (0.6-1.0); GFR 75.3; POTASSIUM 4.2 mmol/L (3.5-5.1); TOTAL BILIRUBIN 0.2 mg/dL (0.2-1.0); TOTAL PROTEIN 7.8 g/dL (6.4-8.2)
== END | disposition home or self-care (01) ==
LOC: PMG 11:41
PROVIDERS: ATTEND Physician Assistant
DX: R19.7 Diarrhea, unspecified (principal); F17.210 Nicotine dependence, cigarettes, uncomplicated
CPT/HCPCS: 36415; 80053; 85025

== ENCOUNTER 2018-02-04 10:55 | Emergency (ER) | payer OTHER ==
[~2018-02-04] VITALS: Ht 152.4 cm; Wt 68.0 kg
[2018-02-04] MEDS ORDERED: IV NORMAL SALINE 1,000ML 1,000 ML IV ONE (11:15)
--- NOTE | 2018-02-04 11:34 | PHYS DOC ---
Past History Past Medical History: Anxiety, GERD, High Cholesterol, Hypertension, Migraines Past Surgical History: Appendectomy, Cholecystectomy, Hysterectomy, Oophorectomy Smoking: Cigarettes Alcohol Use: Rarely Drug Use: None Adult General Chief Complaint Chief Complaint: HEADACHE HPI HPI 52-year-old female presents with migraine headache. Patient states the headache started on Sunday, 3 days ago. It has waxed and waned, but has not gone away. When she woke up this morning it was more intense than her usual headaches. She tried ibuprofen without relief. Her migraines always start in her right occiput and radiate forward. She has visual disturbance such as light sensitivity and occasional blurred vision. The patient has had nausea and vomiting this time. Her migraines have been fairly well-controlled the last few months as she has been getting Botox treatments. She is overdue for her most recent treatment. She denies fever or chills. Review of Systems Review of Systems Constitutional: Denies fever or chills [] Eyes: Denies change in visual acuity, redness, or eye pain [] HENT: Denies nasal congestion or sore throat [] Respiratory: Denies cough or shortness of breath [] Cardiovascular: No additional information not addressed in HPI [] GI: Denies abdominal pain, nausea, vomiting, bloody stools or diarrhea [] : Denies dysuria or hematuria [] Musculoskeletal: Denies back pain or joint pain [] Integument: Denies rash or skin lesions [] Neurologic: Headache [] Endocrine: Denies polyuria or polydipsia [] All other systems were reviewed and found to be within normal limits, except as documented in this note. Current Medications Current Medications Current Medications Medications (Trade) Dose Ordered Sig/Audrey Start Time Stop Time Status Last Admin Dose Admin Diphenhydramine HCl (Benadryl) 25 mg 1X ONCE 02/04/18 11:45 02/04/18 11:46 Ketorolac Tromethamine (Toradol) 30 mg 1X ONCE 02/04/18 11:45 02/04/18 11:46 Metoclopramide HCl (Reglan Vial) 10 mg 1X ONCE 02/04/18 11:45 02/04/18 11:46 Sodium Chloride 1,000 ml @ 1,000 mls/hr 1X ONCE 02/04/18 11:15 02/04/18 12:14 Allergies Allergies Allergies Coded Allergies Type Severity Reaction Last Updated Verified naproxen Allergy Mild Rash 02/17/15 No Physical Exam Physical Exam Constitutional: Well developed, well nourished, no acute distress, non-toxic appearance. [] HENT: Normocephalic, atraumatic, bilateral external ears normal, oropharynx moist, no oral exudates, nose normal. Photophobia[] Eyes: PERRLA, EOMI, conjunctiva normal, no discharge. [] Neck: Normal range of motion, no tenderness, supple, no stridor. [] Cardiovascular:Heart rate regular rhythm, no murmur [] Lungs & Thorax: Bilateral breath sounds clear to auscultation [] Abdomen: Bowel sounds normal, soft, no tenderness, no masses, no pulsatile masses. [] Skin: Warm, dry, no erythema, no rash. [] Back: No tenderness, no CVA tenderness. [] Extremities: No tenderness, no cyanosis, no clubbing, ROM intact, no edema. [] Neurologic: Alert and oriented X 3, normal motor function, normal sensory function, no focal deficits noted. [] Psychologic: Affect normal, judgement normal, mood normal. [] Current Patient Data Vital Signs Vital Signs Date Time Temp Pulse Resp B/P (MAP) Pulse Ox O2 Delivery O2 Flow Rate FiO2 02/04/18 11:04 98.3 92 18 96 Room Air EKG EKG [] Radiology/Procedures Radiology/Procedures [] Course & Med Decision Making Course & Med Decision Making Pertinent Labs and Imaging studies reviewed. (See chart for details) I gave the patient migraine cocktail containing 1 L normal saline, 10 mg Reglan , 25 mg of Benadryl, 30 mg of Toradol. After these medications and some rest, the patient was feeling significantly better. She is grateful for care and feels as though she can go home at this time. She is stable for discharge. [] Dragon Disclaimer Dragon Disclaimer This electronic medical record was generated, in whole or in part, using a voice recognition dictation system. Departure Departure: Referrals: DEYA HE (PCP) ELLEN GORMAN DO Feb 04, 2018 11:34
[2018-02-04 11:44] LABS: BASO # 0.1 x10^3/uL (0.0-0.2); BASO % 1 % (0-3); EOS # 0.3 x10^3/uL (0.0-0.7); EOS % 2 % (0-3); HEMATOCRIT 41.5 % (36.0-47.0); HEMOGLOBIN 13.9 g/dL (12.0-15.5); LYMPH # 2.9 x10^3/uL (1.0-4.8); LYMPH % 25 % (24-48); MEAN CORPUSCULAR HEMOGLOBIN 29 pg (25-35); MEAN CORPUSCULAR HGB CONC 33 g/dL (31-37); MEAN CORPUSCULAR VOLUME 87 fL (79-100); MONO # 0.7 x10^3/uL (0.0-1.1); MONO % 6 % (0-9); NEUT # 7.7 x10^3uL (1.8-7.7); NEUT % 66 % (31-73); PLATELET COUNT 375 x10^3/uL (140-400); RED BLOOD COUNT 4.76 x10^6/uL (3.50-5.40); RED CELL DISTRIBUTION WIDTH 13.2 % (11.5-14.5); WHITE BLOOD COUNT 11.5 x10^3/uL (4.0-11.0)
[2018-02-04] MEDS ORDERED: diphenhydrAMINE 50 MG/ML VIAL IVP ONE (11:45)
[2018-02-04] MEDS ORDERED: KETOROLAC 30 MG/ML VIAL. IV ONE (11:45)
[2018-02-04] MEDS ORDERED: METOCLOPRAMIDE HCL 10 MG/2 ML VIAL. IV ONE (11:45)
[2018-02-04 11:53] LABS: CALCIUM 8.9 mg/dL (8.5-10.1); CREATININE 0.9 mg/dL (0.6-1.0); GFR 65.8; POTASSIUM 3.8 mmol/L (3.5-5.1)
[2018-02-04 14:16] VITALS: BP 126/87
== END 2018-02-04 14:22 | disposition home or self-care (01) ==
LOC: ER 10:55
DX: G43.909 Migraine, unspecified, not intractable, without status migrainosus (principal); F41.9 Anxiety disorder, unspecified; K21.9 Gastro-esophageal reflux disease without esophagitis; E78.00 Pure hypercholesterolemia, unspecified; I10 Essential (primary) hypertension; F17.210 Nicotine dependence, cigarettes, uncomplicated; Z88.8 Allergy status to other drugs, medicaments and biological substances
CPT/HCPCS: 36415; 80048; 85025; 96361; 96374; 96375; 99284; J1200; J1885; J2765; J7030

== ENCOUNTER 2018-03-05 14:06 | Emergency (ER) | payer OTHER ==
[~2018-03-05] VITALS: Ht 154.9 cm; Wt 71.7 kg
[2018-03-05 15:00] LABS: BILIRUBIN,URINE NEG (NEG); CLARITY,URINE CLEAR; COLOR,URINE YELLOW; GLUCOSE,URINE NEG (NEG)
[2018-03-05] MEDS ORDERED: KETOROLAC 30 MG/ML VIAL. IV ONE (15:00)
[2018-03-05] MEDS ORDERED: IV NORMAL SALINE 1,000ML 1,000 ML IV SCH (15:00)
[2018-03-05 15:01] LABS: NITRITE,URINE NEG (NEG); UROBILINOGEN,URINE 0.2 mg/dL (0.2 mg/dL)
[2018-03-05 15:06] LABS: BARBITURATES NEG (NEG); BENZODIAZEPINES POS (NEG); CANNABINOIDS NEG (NEG); COCAINE NEG (NEG); METHADONE NEG (NEG); OPIATES POS (NEG); PHENCYCLIDINE NEG (NEG)
[2018-03-05 15:07] LABS: AMPHETAMINE/METHAMPHETAMINE NEG (NEG)
[2018-03-05 15:23] LABS: BASO # 0.1 x10^3/uL (0.0-0.2); BASO % 1 % (0-3); EOS # 0.2 x10^3/uL (0.0-0.7); EOS % 2 % (0-3); HEMATOCRIT 40.2 % (36.0-47.0); HEMOGLOBIN 13.7 g/dL (12.0-15.5); LYMPH # 3.7 x10^3/uL (1.0-4.8); LYMPH % 34 % (24-48); MEAN CORPUSCULAR HEMOGLOBIN 29 pg (25-35); MEAN CORPUSCULAR HGB CONC 34 g/dL (31-37); MEAN CORPUSCULAR VOLUME 86 fL (79-100); MONO # 0.7 x10^3/uL (0.0-1.1); MONO % 6 % (0-9); NEUT # 6.2 x10^3uL (1.8-7.7); NEUT % 57 % (31-73); PLATELET COUNT 375 x10^3/uL (140-400); RED BLOOD COUNT 4.65 x10^6/uL (3.50-5.40); RED CELL DISTRIBUTION WIDTH 13.2 % (11.5-14.5); WHITE BLOOD COUNT 10.9 x10^3/uL (4.0-11.0)
[2018-03-05 15:37] LABS: ALBUMIN 3.5 g/dL (3.4-5.0); ALBUMIN/GLOBULIN RATIO 1.1 (1.0-1.7); CALCIUM 8.7 mg/dL (8.5-10.1); CREATININE 0.9 mg/dL (0.6-1.0); GFR 65.8; POTASSIUM 3.9 mmol/L (3.5-5.1); TOTAL BILIRUBIN 0.2 mg/dL (0.2-1.0); TOTAL PROTEIN 6.8 g/dL (6.4-8.2)
--- NOTE | 2018-03-05 15:51 | RAD ---
CT of the abdomen and pelvis without contrast 03/05/2018 INDICATION: Flank pain. Evaluate for kidney stones. History of kidney stones. COMPARISON STUDY: CT of the abdomen and pelvis with contrast January 04, 2017. TECHNIQUE: Multidetector CT imaging of the abdomen and pelvis was performed without the administration of intravenous contrast. Visualized lung bases are grossly unremarkable. Cholecystectomy noted. The spleen and small accessory splenule are unchanged. Calcifications in the splenic hilum may represent small calcified splenic artery aneurysms, less than 1 cm in diameter. Finding is unchanged.The adrenal glands are unremarkable. Pancreas is unremarkable noncontrast enhanced appearance. There is no evidence of bowel obstruction. No evidence of acute inflammatory change involving the bowel is identified. Hysterectomy and appendectomy noted. Bladder is unremarkable in appearance. Bilateral kidneys demonstrate no nephrolithiasis. No evidence of hydronephrosis is seen. No ureteral stone is identified. The ureters are unremarkable in course and caliber. No free fluid or free air seen in the abdomen or pelvis. No evidence of acute osseous abnormality is seen. IMPRESSION: No evidence of acute intra-abdominal abnormality or acute change from prior study is identified. CT DOSING PQRS STATEMENT: One or more of the following individualized dose reduction techniques were utilized for this examination: 1. Automated exposure control 2. Adjustment of the mA and/or kV according to patient size 3. Use of iterative reconstruction technique. Electronically signed by: Kwaku Barrios MD (03/05/2018 3:47 PM) [id number]
[2018-03-05 15:59] VITALS: BP 140/87
[2018-03-05] MEDS ORDERED: CYCL-331 PO (16:07)
--- NOTE | 2018-03-05 16:07 | PHYS DOC ---
Past History Past Medical History: Anxiety, GERD, High Cholesterol, Hypertension, Migraines Past Surgical History: Appendectomy, Cholecystectomy, Hysterectomy, Oophorectomy Smoking: Cigarettes Alcohol Use: Rarely Drug Use: None Adult General Chief Complaint Chief Complaint: FLANK PAIN HPI HPI 52-year-old female patient with history of frequent episodes of kidney stone complaining of bilateral flank pain since February 15 with radiation to right lower quadrant as a constant sharp pain. Patient states she was seen by her primary care physician and treated for UTI with Cipro for 3 weeks and currently taking medication without any change of her pain. Patient complaining of nausea without vomiting and diarrhea and constipation. Patient complaining of urinary frequency without dysuria or hematuria. Patient denies fever and chills, shortness of breath, chest pain. Review of Systems Review of Systems Constitutional: Denies fever or chills [] Eyes: Denies change in visual acuity, redness, or eye pain [] HENT: Denies nasal congestion or sore throat [] Respiratory: Denies cough or shortness of breath [] Cardiovascular: No additional information not addressed in HPI [] GI: Reports abdominal pain, nausea, denies vomiting, bloody stools or diarrhea [ ] : Denies dysuria or hematuria, reports flank pain and urinary frequency [] Musculoskeletal: Denies back pain or joint pain [] Integument: Denies rash or skin lesions [] Neurologic: Denies headache, focal weakness or sensory changes [] Endocrine: Denies polyuria or polydipsia [] All other systems were reviewed and found to be within normal limits, except as documented in this note. Current Medications Current Medications Current Medications Medications (Trade) Dose Ordered Sig/Audrey Start Time Stop Time Status Last Admin Dose Admin Ketorolac Tromethamine (Toradol) 30 mg 1X ONCE 03/05/18 15:00 03/05/18 15:01 DC 03/05/18 15:07 30 MG Sodium Chloride 1,000 ml @ 1,000 mls/hr Q1H 03/05/18 15:00 03/05/18 15:59 03/05/18 15:06 1,000 MLS/HR Allergies Allergies Allergies Coded Allergies Type Severity Reaction Last Updated Verified naproxen Allergy Mild Rash 02/17/15 No Physical Exam Physical Exam Constitutional: Well developed, well nourished, mild distress, non-toxic appearance. [] HENT: Normocephalic, atraumatic,oropharynx moist, no oral exudates, nose normal. [] Eyes: PERRLA, EOMI, conjunctiva normal, no discharge. [] Neck: Normal range of motion, no tenderness, supple, no stridor. [] Cardiovascular:Heart rate regular rhythm, no murmur [] Lungs & Thorax: Bilateral breath sounds clear to auscultation [] Abdomen: Bowel sounds normal, soft, no tenderness, no masses, no pulsatile masses. [] Skin: Warm, dry, no erythema, no rash. [] Back: No tenderness, no CVA tenderness. [] Extremities: No tenderness, no cyanosis, no clubbing, ROM intact, no edema. [] Neurologic: Alert and oriented X 3, normal motor function, normal sensory function, no focal deficits noted. [] Psychologic: Affect anxious, judgement normal, mood normal. [] Current Patient Data Vital Signs Vital Signs Date Time Temp Pulse Resp B/P (MAP) Pulse Ox O2 Delivery O2 Flow Rate FiO2 03/05/18 14:35 98.2 80 18 99 Room Air Lab Results Laboratory Tests Test 03/05/18 14:25 03/05/18 14:54 Urine Collection Type Unknown Urine Color Yellow Urine Clarity Clear Urine pH 6.5 Urine Specific [place] 1.010 Urine Protein Neg (NEG-TRACE) Urine Glucose (UA) Neg mg/dL (NEG) Urine Ketones (Stick) Neg mg/dL (NEG) Urine Blood Trace (NEG) Urine Nitrite Neg (NEG) Urine Bilirubin Neg (NEG) Urine Urobilinogen Dipstick 0.2 mg/dL (0.2 mg/dL) Urine Leukocyte Esterase Neg (NEG) Urine Opiates Screen Pos (NEG) Urine Methadone Screen Neg (NEG) Urine Barbiturates Neg (NEG) Urine Phencyclidine Screen Neg (NEG) Urine Amphetamine/Methamphetamine Neg (NEG) Urine Benzodiazepines Screen Pos (NEG) Urine Cocaine Screen Neg (NEG) Urine Cannabinoids Screen Neg (NEG) Urine Ethyl Alcohol Neg (NEG) White Blood Count 10.9 x10^3/uL (4.0-11.0) Red Blood Count 4.65 x10^6/uL (3.50-5.40) Hemoglobin 13.7 g/dL (12.0-15.5) Hematocrit 40.2 % (36.0-47.0) Mean Corpuscular Volume 86 fL (79-100) Mean Corpuscular Hemoglobin 29 pg (25-35) Mean Corpuscular Hemoglobin Concent 34 g/dL (31-37) Red Cell Distribution Width 13.2 % (11.5-14.5) Platelet Count 375 x10^3/uL (140-400) Neutrophils (%) (Auto) 57 % (31-73) Lymphocytes (%) (Auto) 34 % (24-48) Monocytes (%) (Auto) 6 % (0-9) Eosinophils (%) (Auto) 2 % (0-3) Basophils (%) (Auto) 1 % (0-3) Neutrophils # (Auto) 6.2 x10^3uL (1.8-7.7) Lymphocytes # (Auto) 3.7 x10^3/uL (1.0-4.8) Monocytes # (Auto) 0.7 x10^3/uL (0.0-1.1) Eosinophils # (Auto) 0.2 x10^3/uL (0.0-0.7) Basophils # (Auto) 0.1 x10^3/uL (0.0-0.2) Sodium Level 136 mmol/L (136-145) Potassium Level 3.9 mmol/L (3.5-5.1) Chloride Level 104 mmol/L (98-107) Carbon Dioxide Level 27 mmol/L (21-32) Anion Gap 5 (6-14) L Blood Urea Nitrogen 6 mg/dL (7-20) L Creatinine 0.9 mg/dL (0.6-1.0) Estimated GFR (Cockcroft-Gault) 65.8 BUN/Creatinine Ratio 7 (6-20) Glucose Level 91 mg/dL (70-99) Calcium Level 8.7 mg/dL (8.5-10.1) Total Bilirubin 0.2 mg/dL (0.2-1.0) Aspartate Amino Transferase (AST) 11 U/L (15-37) L Alanine Aminotransferase (ALT) 23 U/L (14-59) Alkaline Phosphatase 124 U/L (46-116) H Creatine Kinase 115 U/L (26-192) Total Protein 6.8 g/dL (6.4-8.2) Albumin 3.5 g/dL (3.4-5.0) Albumin/Globulin Ratio 1.1 (1.0-1.7) EKG EKG [] Radiology/Procedures Radiology/Procedures [][address] [address] IMAGING REPORT Signed PATIENT: SANTI MIRANDA ACCOUNT: [id number] : 1965 LOCATION: ER AGE: 52 SEX: F EXAM STATUS: REG ER ORD. PHYSICIAN: RUPESH THOMAS MD REASON: bilateral flank pain, history of kidney stone PROCEDURE: CT ABDOMEN PELVIS WO CONTRAST CT of the abdomen and pelvis without contrast 03/05/2018 INDICATION: Flank pain. Evaluate for kidney stones. History of kidney stones. COMPARISON STUDY: CT of the abdomen and pelvis with contrast January 04, 2017. TECHNIQUE: Multidetector CT imaging of the abdomen and pelvis was performed without the administration of intravenous contrast. Visualized lung bases are grossly unremarkable. Cholecystectomy noted. The spleen and small accessory splenule are unchanged. Calcifications in the splenic hilum may represent small calcified splenic artery aneurysms, less than 1 cm in diameter. Finding is unchanged.The adrenal glands are unremarkable. Pancreas is unremarkable noncontrast enhanced appearance. There is no evidence of bowel obstruction. No evidence of acute inflammatory change involving the bowel is identified. Hysterectomy and appendectomy noted. Bladder is unremarkable in appearance. Bilateral kidneys demonstrate no nephrolithiasis. No evidence of hydronephrosis is seen. No ureteral stone is identified. The ureters are unremarkable in course and caliber. No free fluid or free air seen in the abdomen or pelvis. No evidence of acute osseous abnormality is seen. IMPRESSION: No evidence of acute intra-abdominal abnormality or acute change from prior study is identified. CT DOSING PQRS STATEMENT: One or more of the following individualized dose reduction techniques were utilized for this examination: 1. Automated exposure control 2. Adjustment of the mA and/or kV according to patient size 3. Use of iterative reconstruction technique. Electronically signed by: Kwaku Alejo MD (03/05/2018 3:47 PM) [id number] DICTATED AND SIGNED BY: KWAKU ALEJO MD DATE: 03/05/18 0422 CC: RUPESH THOMAS MD; ARYAN ODOM MD ~ Course & Med Decision Making Course & Med Decision Making Pertinent Labs and Imaging studies reviewed. (See chart for details) Evaluation of patient in ER showed 52-year-old female patient with complaining of constant bilateral flank pain with radiation to lower abdomen for more than 2 weeks without improvement with Cipro. Patient had unremarkable physical exam except for anxiety, labs, CT abdomen and pelvis and felt better with treatment in ER. Plan discharge patient home with diagnosis of flank pain. Dragon Disclaimer Dragon Disclaimer This electronic medical record was generated, in whole or in part, using a voice recognition dictation system. Departure Departure: Impression: Primary Impression: Bilateral flank pain Disposition: HOME, SELF-CARE (at 1602) Condition: IMPROVED Referrals: ARAYN ODOM MD (PCP) Patient Instructions: Flank Pain Additional Instructions: Drink plenty of liquids Follow-up with your primary care physician in 3-5 days Return to ER if not getting better Stop taking Bactrim Scripts Cyclobenzaprine Hcl (CYCLOBENZAPRINE HCL) 10 Mg Tablet 1 TAB PO TID, #30 TAB Prov: RUPESH THOMAS MD 03/05/18 RUPESH THOMAS MD Mar 05, 2018 16:07
== END 2018-03-05 16:16 | disposition home or self-care (01) ==
LOC: ER 14:06
DX: R10.9 Unspecified abdominal pain (principal); R35.0 Frequency of micturition; F41.9 Anxiety disorder, unspecified; K21.9 Gastro-esophageal reflux disease without esophagitis; E78.00 Pure hypercholesterolemia, unspecified; I10 Essential (primary) hypertension; G43.909 Migraine, unspecified, not intractable, without status migrainosus; F17.210 Nicotine dependence, cigarettes, uncomplicated; Z90.49 Acquired absence of other specified parts of digestive tract; Z90.710 Acquired absence of both cervix and uterus; Z90.722 Acquired absence of ovaries, bilateral; Z88.6 Allergy status to analgesic agent
CPT/HCPCS: 36415; 74176; 80053; 80307; 81003; 82550; 85025; 96374; 99285; J1885; G0479; J7030

== ENCOUNTER → 2018-09-16 | Outpatient (CLI) | payer OTHER ==
[~2018-09-16] MED LIST changes: +CYCL-331 PO; +OMEP20CA10 PO; -OMEP20CA9 PO; -OXYC-328 PO; +OXYC1TAB22 PO
--- NOTE | 2018-09-17 10:34 | RAD ---
DATE: 09/16/2018 EXAM: DIGITAL SCREEN BILAT W/CAD HISTORY: Routine screening COMPARISON: None available This study was interpreted with the benefit of Computerized Aided Detection (CAD). Breast Density: FATTY The breast parenchyma is primarily fatty replaced. Breast parenchyma level density A. FINDINGS: No spiculated mass or architectural distortion is evident. Benign type calcifications are present in both breasts. No suspicious microcalcifications are identified. Benign-appearing lymph noted type densities are projected over the axillary regions. IMPRESSION: There is no mammographic evidence of malignancy in either breast. Routine yearly mammographic follow-up is suggested. BI-RADS CATEGORY: 2 BENIGN FINDING(S) RECOMMENDED FOLLOW-UP: 6M 6 MONTH FOLLOW-UP PQRS compliance statement: Patient information was entered into a reminder system with a target due date for the next mammogram. Mammography is a sensitive method for finding small breast cancers, but it does not detect them all and is not a substitute for careful clinical examination. A negative mammogram does not negate a clinically suspicious finding and should not result in delay in biopsying a clinically suspicious abnormality. "Our facility is accredited by the [employer] Mammography Program."
== END | disposition home or self-care (01) ==
LOC: MAMMO 11:35
PROVIDERS: ATTEND Registered Nurse
DX: Z12.31 Encounter for screening mammogram for malignant neoplasm of breast (principal)
CPT/HCPCS: 77067

== ENCOUNTER → 2018-10-29 | Outpatient (CLI) | payer OTHER ==
[~2018-10-29] MED LIST changes: -OMEP20CA10 PO; +OMEP20CA9 PO
--- NOTE | 2018-10-29 09:25 | RAD ---
EXAM: Abdomen sonogram. HISTORY: Pain. TECHNIQUE: Sonographic imaging of the abdomen was performed. COMPARISON: CT dated 03/05/2018. FINDINGS: The liver is mildly enlarged. No focal hepatic lesion is seen. The liver parenchyma is slightly echogenic, suggesting slight fatty infiltration. The gallbladder is surgically absent. The common bile duct is normal in caliber. The kidneys are unremarkable. The pancreas is unremarkable. There are granulomas within an otherwise unremarkable spleen. The aorta is normal caliber. The inferior vena cava is patent. The stomach contains ingested bolus. IMPRESSION: 1. Slightly echogenic liver parenchyma suggesting steatosis. The liver is mildly enlarged. 2. Cholecystectomy. 3. Debris-filled stomach despite the reported fasting status of patient. Electronically signed by: Kezia Dunlap MD (10/29/2018 9:22 AM) [facility]
== END | disposition home or self-care (01) ==
LOC: US 07:53
PROVIDERS: ATTEND Registered Nurse
DX: R16.0 Hepatomegaly, not elsewhere classified (principal); D73.89 Other diseases of spleen; Z90.49 Acquired absence of other specified parts of digestive tract
CPT/HCPCS: 76700

== ENCOUNTER → 2018-10-29 | Outpatient (CLI) | payer OTHER ==
--- NOTE | 2018-10-29 11:41 | CARD ---
MR#: [id number] Date of Study: 10/29/2018 Ordering Physician: ANDREW DAHL, Referring Physician: ANDREW DAHL Tech: Maribel Acosta RDCS APPROVED REPORT EXAM: Two-dimensional and M-mode echocardiogram with Doppler and color Doppler. Other Information Quality : Good Rhythm : NSR INDICATION Chest Pain RISK FACTORS Family History Smoking 2D DIMENSIONS RVDd2.9 (2.9-3.5cm)Left Atrium(2D)3.3 (1.6-4.0cm) IVSd0.7 (0.7-1.1cm)Aortic Root(2D)3.0 (2.0-3.7cm) LVDd4.6 (3.9-5.9cm)LVOT Diameter2.0 (1.8-2.4cm) PWd0.9 (0.7-1.1cm)LVDs3.1 (2.5-4.0cm) FS (%) 31.8 %SV58.2 ml Aortic Valve AoV Peak Casey.129.3cm/sAoV VTI19.4cm AO Peak GR.6.7mmHgLVOT Peak Casey.92.8cm/s LVOT VTI 14.41cmAO Mean GR.4mmHg K[place]INA (VMAX)2.60ur1FAB (VTI)2.43cm2 Mitral Valve MV E Otrvvfnq46.5cm/sMV DECEL [id number] MV A Hmyiylcl65.4cm/sE/A Ratio0.7 Tricuspid Valve TR P. Fgppnwlo998pa/sRAP JJQBEBLC3uqIn TR Peak Gr.94anQsDDJI80wgVo Pulmonary Vein S1 Vmcabjtq59.0cm/sD2 Gocyorpp12.5cm/s LEFT VENTRICLE The left ventricle is normal size. There is normal left ventricular wall thickness. The left ventricu lar systolic function is normal and the ejection fraction is within normal range. The Ejection Fracti on is 50-55%. There is normal LV segmental wall motion. Transmitral Doppler flow pattern is Grade I-a bnormal relaxation pattern. RIGHT VENTRICLE The right ventricle is normal size. The right ventricular systolic function is normal. ATRIA The left atrium size is normal. The right atrium size is normal. The interatrial septum is intact wit h no evidence for an atrial septal defect or patent foramen ovale as noted on 2-D or Doppler imaging. AORTIC VALVE The aortic valve is normal in structure and function. Doppler and Color Flow revealed no significant aortic regurgitation. There is no significant aortic valvular stenosis. MITRAL VALVE The mitral valve is normal in structure and function. There is no evidence of mitral valve prolapse. There is no mitral valve stenosis. Doppler and Color Flow revealed no mitral valve regurgitation note d. TRICUSPID VALVE The tricuspid valve is normal in structure and function. Doppler and Color Flow revealed trace tricus pid regurgitation. The PA pressure was estimated at 27 mmHg. There is no tricuspid valve stenosis. PULMONIC VALVE The pulmonary valve is normal in structure and function. Doppler and Color Flow revealed trace to mil d pulmonic valvular regurgitation. There is no pulmonic valvular stenosis. GREAT VESSELS The aortic root is normal in size. The ascending aorta is normal in size. The IVC is normal in size a nd collapses >50% with inspiration. PERICARDIAL EFFUSION There is no evidence of significant pericardial effusion. Critical Notification Critical Value: No <Conclusion> The left ventricle is normal size. The left ventricular systolic function is normal and the ejection fraction is within normal range. The Ejection Fraction is 50-55%. There is no significant aortic valvular stenosis. Doppler and Color Flow revealed no significant aortic regurgitation. Doppler and Color Flow revealed no mitral valve regurgitation noted. Doppler and Color Flow revealed trace tricuspid regurgitation. The PA pressure was estimated at 27 mmHg. Signed by : Bradley Martines MD Electronically Approved : 10/29/2018 11:41:33
== END | disposition home or self-care (01) ==
LOC: ECHO 10:59
PROVIDERS: ATTEND Registered Nurse
DX: R00.8 Other abnormalities of heart beat (principal)
CPT/HCPCS: 93306

== ENCOUNTER → 2019-02-12 | Outpatient (CLI) | payer OTHER ==
[~2019-02-12] MED LIST changes: +OMEP20CA10 PO; -OMEP20CA9 PO
[2019-02-12 11:25] LABS: BASO % 0 % (0-3); EOS % 0 % (0-3); HEMATOCRIT 43.8 % (36.0-47.0); HEMOGLOBIN 14.6 g/dL (12.0-15.5); LYMPH # 3.5 x10^3/uL (1.0-4.8); LYMPH % 34 % (24-48); MEAN CORPUSCULAR HEMOGLOBIN 29 pg (25-35); MEAN CORPUSCULAR HGB CONC 33 g/dL (31-37); MEAN CORPUSCULAR VOLUME 88 fL (79-100); MONO # 0.8 x10^3/uL (0.0-1.1); MONO % 8 % (0-9); NEUT # 5.9 x10^3uL (1.8-7.7); NEUT % 58 % (31-73); PLATELET COUNT 380 x10^3/uL (140-400); RED BLOOD COUNT 4.96 x10^6/uL (3.50-5.40); RED CELL DISTRIBUTION WIDTH 13.6 % (11.5-14.5); WHITE BLOOD COUNT 10.2 x10^3/uL (4.0-11.0)
[2019-02-12 11:33] LABS: ALBUMIN/GLOBULIN RATIO 1.1 (1.0-1.7); CALCIUM 9.5 mg/dL (8.5-10.1); CREATININE 0.8 mg/dL (0.6-1.0); POTASSIUM 4.5 mmol/L (3.5-5.1); TOTAL BILIRUBIN 0.2 mg/dL (0.2-1.0); TOTAL PROTEIN 7.6 g/dL (6.4-8.2)
== END | disposition home or self-care (01) ==
LOC: PMG 10:59
PROVIDERS: ATTEND Registered Nurse
DX: R10.9 Unspecified abdominal pain (principal); R11.2 Nausea with vomiting, unspecified; R19.7 Diarrhea, unspecified; R53.83 Other fatigue
CPT/HCPCS: 36415; 80053; 82150; 83690; 85025; 86140; 87086

== ENCOUNTER → 2019-02-14 | Outpatient (CLI) | payer OTHER ==
[~2019-02-14] MED LIST changes: +IOHEXOL 240 MG/ML 50ML VIAL. ONE; +IOHEXOL 240 MG/ML 50ML VIAL. PO ONE; +IOHEXOL 300 MG/ML 75 ML VIAL. IV ONE
--- NOTE | 2019-02-14 14:03 | RAD ---
CT ABD PELV W/ORAL IV CONTRAST Indication: Severe abdominal pain for one week, especially after eating. Appendectomy, cholecystectomy and hysterectomy. Exposure: One or more of the following individualized dose reduction techniques were utilized for this examination: 1. Automated exposure control 2. Adjustment of the mA and/or kV according to patient size 3. Use of iterative reconstruction technique. Technique: Intravenous contrast was given. Oral contrast was given. Findings: Lung bases are clear. Right lobe of the liver is mildly elongated at 19 cm. Spleen unremarkable. No abnormality is seen at the pancreas. No adrenal mass. Kidneys demonstrate symmetric enhancement without mass or hydronephrosis. No bladder surgically absent. Aorta is nonaneurysmal, mildly calcified. No significant lymph node enlargement. Mild wall thickening of proximal jejunum loops. No significant small bowel obstruction. No evidence of acute colitis. No evidence of ascites or significant pneumoperitoneum. Urinary bladder is incompletely distended. No evidence of pelvic mass. Mild degenerative changes of the spine. No aggressive bone destruction. IMPRESSION: Mild wall thickening of jejunum, compatible with a nonspecific mild enteritis. Electronically signed by: Hermilo Hackett MD (02/14/2019 2:00 PM) [id number]
== END | disposition home or self-care (01) ==
LOC: CT 08:32
PROVIDERS: ATTEND Registered Nurse
DX: K63.89 Other specified diseases of intestine (principal); I70.0 Atherosclerosis of aorta; M47.819 Spondylosis without myelopathy or radiculopathy, site unspecified; F17.200 Nicotine dependence, unspecified, uncomplicated; Z90.49 Acquired absence of other specified parts of digestive tract; Z90.710 Acquired absence of both cervix and uterus
CPT/HCPCS: 74177; Q9966; Q9967

== ENCOUNTER 2019-02-23 18:43 | Emergency (ER) | payer OTHER ==
[~2019-02-23] VITALS: Ht 154.9 cm; Wt 68.0 kg
[~2019-02-23 18:43] MED LIST changes: -IOHEXOL 240 MG/ML 50ML VIAL. ONE; -IOHEXOL 240 MG/ML 50ML VIAL. PO ONE; -IOHEXOL 300 MG/ML 75 ML VIAL. IV ONE
--- NOTE | 2019-02-23 18:54 | ED.ADGEN ---
Past History Past Medical History: Anxiety, GERD, High Cholesterol, Hypertension, Migraines, Other Past Surgical History: Appendectomy, Cholecystectomy, Hysterectomy, Oophorectomy Smoking: Cigarettes Alcohol Use: Rarely Drug Use: None Adult General Chief Complaint Chief Complaint ".. I am been getting pain off and on now for 3 weeks.. It seems like here on the Rt... .. I ve always had abdomen pain problems... Esophageal.. adenoma lesions .. maybe cancer, gall bladder had to be taken out.... all my reproductive parts... my appendix.. it just does not seem to be getting better, ... I ve been on a course of antibiotics... and this week I did have some vomiting.. and passed out or nearly passed out... ... I have an apt. coming up with Dr. Roberts... he seen me before... Dr. Contreras has been working with me.. thinks this may all due to adhesions and scaring..." HPI HPI Patient is a 53 year old female who presents with above hx and complaints a bdomen pain and cramping. Patient also having distention and nausea. Patient localizes primary of pain on epigastric right upper and right flank. Patient denies any trauma. Patient did eat approximately one today. Patient reportedly did have a stool today. No tarry or bloody stools. Patient denies any travel or specific ill contacts. No hx of bad food. No contact with fowl or reptiles. Patient does smoke. Has a history of irritable bowel syndrome and GERD. Pt. has schedule apt. with Dr. Alejandra Blue for EGD. Review of Systems Review of Systems Constitutional: Denies fever or chills [] Eyes: Denies change in visual acuity, redness, or eye pain [] HENT: Denies nasal congestion or sore throat [] Respiratory: Denies cough or shortness of breath [] Cardiovascular: No additional information not addressed in HPI [] GI: Epigastric and generalized abdominal pain, nausea,. vomiting, . No bloody stools or diarrhea [] : Denies dysuria or hematuria [] Musculoskeletal: Denies back pain or joint pain [] Integument: Denies rash or skin lesions [] Neurologic: Denies headache, focal weakness or sensory changes [] Endocrine: Denies polyuria or polydipsia [] All other systems were reviewed and found to be within normal limits, except as documented in this note. Family History Family History Non-contributory Current Medications Current Medications Current Medications Medications (Trade) Dose Ordered Sig/Audrey Start Time Stop Time Status Last Admin Dose Admin Famotidine (Pepcid Vial) 20 mg 1X ONCE 02/23/19 19:30 02/23/19 19:31 DC 02/23/19 19:39 20 MG Lactated Ringer's 1,000 ml @ 1,000 mls/hr Q1H 02/23/19 19:30 02/23/19 20:29 DC 02/23/19 19:38 1,000 MLS/HR Magnesium Hydroxide (Milk Of Magnesia) 2,400 mg 1X ONCE 02/23/19 22:00 02/23/19 22:00 DC Ondansetron HCl (Zofran) 8 mg 1X ONCE 02/23/19 19:30 02/23/19 19:31 DC 02/23/19 19:39 8 MG Allergies Allergies Allergies Coded Allergies Type Severity Reaction Last Updated Verified naproxen Allergy Intermediate Rash 02/23/19 No Physical Exam Physical Exam Constitutional: moderate acute distress, non-toxic appearance. [] HENT: Normocephalic, atraumatic, bilateral external ears normal, oropharynx moist, no oral exudates, nose normal. [] Eyes: PERRLA, EOMI, conjunctiva normal, no discharge. [] Neck: Normal range of motion, no tenderness, supple, no stridor. [] Cardiovascular:Heart rate regular rhythm, no murmur [] Lungs & Thorax: Bilateral breath sounds equal with scattered wheezes on auscultation [] Abdomen: Bowel sounds normal, soft, epigastric tenderness, some generalized tenderness, No focal rebound, distended, old surgery scars, no masses, no pulsatile masses. [] Skin: Warm, dry, no erythema, no rash. [] Back: No tenderness, no CVA tenderness. [] Extremities: No tenderness, no cyanosis, no clubbing, ROM intact, no edema. [] No psoas sign. Neurologic: Alert and oriented X 3, normal motor function, normal sensory function, no focal deficits noted. [] Psychologic: Affect anxious, , judgement normal, mood normal. [] Current Patient Data Vital Signs Vital Signs Date Time Temp Pulse Resp B/P (MAP) Pulse Ox O2 Delivery O2 Flow Rate FiO2 02/23/19 20:52 80 18 111/69 (83) 98 Room Air 02/23/19 18:55 97.8 Lab Results Laboratory Tests Test 02/23/19 14:40 02/23/19 18:55 White Blood Count 10.6 x10^3/uL (4.0-11.0) Red Blood Count 4.72 x10^6/uL (3.50-5.40) Hemoglobin 14.1 g/dL (12.0-15.5) Hematocrit 42.1 % (36.0-47.0) Mean Corpuscular Volume 89 fL (79-100) Mean Corpuscular Hemoglobin 30 pg (25-35) Mean Corpuscular Hemoglobin Concent 34 g/dL (31-37) Red Cell Distribution Width 13.6 % (11.5-14.5) Platelet Count 338 x10^3/uL (140-400) Neutrophils (%) (Auto) 68 % (31-73) Lymphocytes (%) (Auto) 25 % (24-48) Monocytes (%) (Auto) 6 % (0-9) Eosinophils (%) (Auto) 0 % (0-3) Basophils (%) (Auto) 0 % (0-3) Neutrophils # (Auto) 7.3 x10^3uL (1.8-7.7) Lymphocytes # (Auto) 2.7 x10^3/uL (1.0-4.8) Monocytes # (Auto) 0.7 x10^3/uL (0.0-1.1) Eosinophils # (Auto) 0.0 x10^3/uL (0.0-0.7) Basophils # (Auto) 0.0 x10^3/uL (0.0-0.2) Prothrombin Time 9.9 SEC (9.4-11.4) Prothrombin Time INR 1.0 (0.9-1.1) PTT 27 SEC (23-33) Sodium Level 139 mmol/L (136-145) Potassium Level 3.8 mmol/L (3.5-5.1) Chloride Level 103 mmol/L (98-107) Carbon Dioxide Level 26 mmol/L (21-32) Anion Gap 10 (6-14) Blood Urea Nitrogen 7 mg/dL (7-20) Creatinine 0.8 mg/dL (0.6-1.0) Estimated GFR (Cockcroft-Gault) 75.0 Glucose Level 86 mg/dL (70-99) Lactic Acid Level 0.9 mmol/L (0.4-2.0) Calcium Level 9.1 mg/dL (8.5-10.1) Magnesium Level 2.1 mg/dL (1.8-2.4) Total Bilirubin 0.2 mg/dL (0.2-1.0) Direct Bilirubin 0.1 mg/dL (0.0-0.2) Aspartate Amino Transferase (AST) 13 U/L (15-37) L Alanine Aminotransferase (ALT) 25 U/L (14-59) Alkaline Phosphatase 114 U/L (46-116) Creatine Kinase 68 U/L (26-192) Troponin I Quantitative < 0.017 ng/mL (0-0.055) OS-Zdn-O-Type Natriuretic Peptide 8 pg/mL (0-124) Total Protein 6.9 g/dL (6.4-8.2) Albumin 4.0 g/dL (3.4-5.0) Amylase Level 77 U/L (25-115) Lipase 291 U/L (73-393) Urine Collection Type Unknown Urine Color Straw Urine Clarity Clear Urine pH 6.5 Urine Specific [place] <=1.005 Urine Protein Neg (NEG-TRACE) Urine Glucose (UA) Neg mg/dL (NEG) Urine Ketones (Stick) Neg mg/dL (NEG) Urine Blood Small (NEG) Urine Nitrite Neg (NEG) Urine Bilirubin Neg (NEG) Urine Urobilinogen Dipstick 0.2 mg/dL (0.2 mg/dL) Urine Leukocyte Esterase Neg (NEG) Urine RBC Occ /HPF (0-2) Urine WBC 1-4 /HPF (0-4) Urine Squamous Epithelial Cells Occ /LPF Urine Bacteria 0 /HPF (0-FEW) Urine Opiates Screen Neg (NEG) Urine Methadone Screen Neg (NEG) Urine Barbiturates Neg (NEG) Urine Phencyclidine Screen Neg (NEG) Urine Amphetamine/Methamphetamine Neg (NEG) Urine Benzodiazepines Screen Pos (NEG) Urine Cocaine Screen Neg (NEG) Urine Cannabinoids Screen Neg (NEG) Urine Ethyl Alcohol Neg (NEG) EKG EKG My interpretation EKG shows a sinus rhythm at 82 bpm. No acute findings of STEMI or contralateral changes.[] Radiology/Procedures Radiology/Procedures My interpretation acute abdomen film shows nonspecific bowel gas pattern. There is stool in the colon. There is clips from previous surgeries. There is no free air under the diaphragm. Chest portion shows no acute cardiopulmonary changes. Did review prior CT results completed 02/14/[address] with contrast oral and IV, there is findings possibility consistent with small bowel enteritis mild.[] No acute surgical process detected. Course & Med Decision Making Course & Med Decision Making Pertinent Labs and Imaging studies reviewed. (See chart for details). Patient to take GI meds previous directed. Stay on a clear fluid diet. Patient encouraged to stop smoking. Patient follow-up with Dr. Roberts for her EGD on . Patient follow-up with her primary doctor Diane [] Final Impression Final Impression 1. Abdomen Pain 2. GERD 3. IBS?/ Adhesions ? 4. Constipation[] 5. Tobacco Use Dragon Disclaimer Dragon Disclaimer This electronic medical record was generated, in whole or in part, using a voice recognition dictation system. Discharge Summary Visit Information Final Diagnosis Problems Medical Problems: (1) Abdominal pain Status: Acute Brief Hospital Course Allergies Allergies Coded Allergies Type Severity Reaction Last Updated Verified naproxen Allergy Intermediate Rash 02/23/19 No Vital Signs Vital Signs Date Time Temp Pulse Resp B/P (MAP) Pulse Ox O2 Delivery O2 Flow Rate FiO2 02/23/19 20:52 80 18 111/69 (83) 98 Room Air 02/23/19 18:55 97.8 Lab Results Laboratory Tests Test 02/23/19 14:40 02/23/19 18:55 White Blood Count 10.6 x10^3/uL (4.0-11.0) Red Blood Count 4.72 x10^6/uL (3.50-5.40) Hemoglobin 14.1 g/dL (12.0-15.5) Hematocrit 42.1 % (36.0-47.0) Mean Corpuscular Volume 89 fL (79-100) Mean Corpuscular Hemoglobin 30 pg (25-35) Mean Corpuscular Hemoglobin Concent 34 g/dL (31-37) Red Cell Distribution Width 13.6 % (11.5-14.5) Platelet Count 338 x10^3/uL (140-400) Neutrophils (%) (Auto) 68 % (31-73) Lymphocytes (%) (Auto) 25 % (24-48) Monocytes (%) (Auto) 6 % (0-9) Eosinophils (%) (Auto) 0 % (0-3) Basophils (%) (Auto) 0 % (0-3) Neutrophils # (Auto) 7.3 x10^3uL (1.8-7.7) Lymphocytes # (Auto) 2.7 x10^3/uL (1.0-4.8) Monocytes # (Auto) 0.7 x10^3/uL (0.0-1.1) Eosinophils # (Auto) 0.0 x10^3/uL (0.0-0.7) Basophils # (Auto) 0.0 x10^3/uL (0.0-0.2) Prothrombin Time 9.9 SEC (9.4-11.4) Prothromb Time International Ratio 1.0 (0.9-1.1) Activated Partial Thromboplast Time 27 SEC (23-33) Sodium Level 139 mmol/L (136-145) Potassium Level 3.8 mmol/L (3.5-5.1) Chloride Level 103 mmol/L (98-107) Carbon Dioxide Level 26 mmol/L (21-32) Anion Gap 10 (6-14) Blood Urea Nitrogen 7 mg/dL (7-20) Creatinine 0.8 mg/dL (0.6-1.0) Estimated GFR (Cockcroft-Gault) 75.0 Glucose Level 86 mg/dL (70-99) Lactic Acid Level 0.9 mmol/L (0.4-2.0) Calcium Level 9.1 mg/dL (8.5-10.1) Magnesium Level 2.1 mg/dL (1.8-2.4) Total Bilirubin 0.2 mg/dL (0.2-1.0) Direct Bilirubin 0.1 mg/dL (0.0-0.2) Aspartate Amino Transf (AST/SGOT) 13 U/L (15-37) Alanine Aminotransferase (ALT/SGPT) 25 U/L (14-59) Alkaline Phosphatase 114 U/L (46-116) Creatine Kinase 68 U/L (26-192) Troponin I Quantitative < 0.017 ng/mL (0-0.055) FM-Def-D-Type Natriuretic Peptide 8 pg/mL (0-124) Total Protein 6.9 g/dL (6.4-8.2) Albumin 4.0 g/dL (3.4-5.0) Amylase Level 77 U/L (25-115) Lipase 291 U/L (73-393) Urine Collection Type Unknown Urine Color Straw Urine Clarity Clear Urine pH 6.5 Urine Specific [place] <=1.005 Urine Protein Neg (NEG-TRACE) Urine Glucose (UA) Neg mg/dL (NEG) Urine Ketones (Stick) Neg mg/dL (NEG) Urine Blood Small (NEG) Urine Nitrite Neg (NEG) Urine Bilirubin Neg (NEG) Urine Urobilinogen Dipstick 0.2 mg/dL (0.2 mg/dL) Urine Leukocyte Esterase Neg (NEG) Urine RBC Occ /HPF (0-2) Urine WBC 1-4 /HPF (0-4) Urine Squamous Epithelial Cells Occ /LPF Urine Bacteria 0 /HPF (0-FEW) Urine Opiates Screen Neg (NEG) Urine Methadone Screen Neg (NEG) Urine Barbiturates Neg (NEG) Urine Phencyclidine Screen Neg (NEG) Urine Amphetamine/Methamphetamine Neg (NEG) Urine Benzodiazepines Screen Pos (NEG) Urine Cocaine Screen Neg (NEG) Urine Cannabinoids Screen Neg (NEG) Urine Ethyl Alcohol Neg (NEG) Brief Hospital Course Ms. Bertrand is a 53 old female who presented with abdomen pain. Discharge Information Condition at Discharge: Improved, Stable Disposition/Orders: D/C to Home Dischare Medications Current Medications Lactated Ringer's 1,000 ml @ 1,000 mls/hr Q1H IV Last administered on 02/23/19at 19:38; Admin Dose 1,000 MLS/HR; Start 02/23/19 at 19:30; Stop 02/23/19 at 20:29; Status DC Famotidine (Pepcid Vial) 20 mg 1X ONCE IVP Last administered on 02/23/19at 19:39; Admin Dose 20 MG; Start 02/23/19 at 19:30; Stop 02/23/19 at 19:31; Status DC Ondansetron HCl (Zofran) 8 mg 1X ONCE IV Last administered on 02/23/19at 19:39; Admin Dose 8 MG; Start 02/23/19 at 19:30; Stop 02/23/19 at 19:31; Status DC Magnesium Hydroxide (Milk Of Magnesia) 2,400 mg 1X ONCE PO ; Start 02/23/19 at 22:00; Stop 02/23/19 at 22:00; Status DC Active Scripts Active Cyclobenzaprine Hcl 10 Mg Tablet 1 Tab PO TID Oxycodone Hcl 10 Mg Tablet 1 Tab PO TID PRN Reported Ibuprofen 400 Mg Tablet 600 Mg PO 1X Vitamin D2 (Ergocalciferol (Vitamin D2)) 50,000 Unit Capsule 1.25 Mg PO BID Simvastatin 40 Mg Tablet 1 Tab PO QHS Omeprazole 20 Mg Capsule. 20 Mg PO Dragon Disclaimer This chart was dictated in whole or in part using Voice Recognition software in a busy, high-work load, and often noisy Emergency Department environment. It may contain unintended and wholly unrecognized errors or omissions. DOLORES MCCANN MD Feb 23, 2019 18:54
[2019-02-23] MEDS ORDERED: FAMOTIDINE 20 MG/2 ML VIAL IVP ONE (19:30)
[2019-02-23] MEDS ORDERED: ONDANSETRON PF 4 MG/2 ML VIAL. IV ONE (19:30)
[2019-02-23] MEDS ORDERED: IV RINGERS SOLUTION,LACTATED 1,000 ML IV SCH (19:30)
--- NOTE | 2019-02-23 19:43 | EKG ---
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
[2019-02-23 19:59] LABS: AMPHETAMINE/METHAMPHETAMINE NEG (NEG); BARBITURATES NEG (NEG); BENZODIAZEPINES POS (NEG); COCAINE NEG (NEG); METHADONE NEG (NEG); OPIATES NEG (NEG)
[2019-02-23 20:00] LABS: CANNABINOIDS NEG (NEG); PHENCYCLIDINE NEG (NEG)
[2019-02-23 20:06] LABS: BASO % 0 % (0-3); EOS % 0 % (0-3); HEMATOCRIT 42.1 % (36.0-47.0); HEMOGLOBIN 14.1 g/dL (12.0-15.5); LYMPH # 2.7 x10^3/uL (1.0-4.8); LYMPH % 25 % (24-48); MEAN CORPUSCULAR HEMOGLOBIN 30 pg (25-35); MEAN CORPUSCULAR HGB CONC 34 g/dL (31-37); MEAN CORPUSCULAR VOLUME 89 fL (79-100); MONO # 0.7 x10^3/uL (0.0-1.1); MONO % 6 % (0-9); NEUT # 7.3 x10^3uL (1.8-7.7); NEUT % 68 % (31-73); PLATELET COUNT 338 x10^3/uL (140-400); RED BLOOD COUNT 4.72 x10^6/uL (3.50-5.40); RED CELL DISTRIBUTION WIDTH 13.6 % (11.5-14.5); WHITE BLOOD COUNT 10.6 x10^3/uL (4.0-11.0)
[2019-02-23 20:17] LABS: BILIRUBIN,URINE NEG (NEG); CLARITY,URINE CLEAR; COLOR,URINE STRAW; GLUCOSE,URINE NEG (NEG)
[2019-02-23 20:18] LABS: BACTERIA,URINE 0 /HPF (0-FEW); NITRITE,URINE NEG (NEG); RBC,URINE OCC /HPF (0-2); SQUAMOUS EPITHELIAL CELL,UR OCC /LPF; UROBILINOGEN,URINE 0.2 mg/dL (0.2 mg/dL)
[2019-02-23 20:32] LABS: CALCIUM 9.1 mg/dL (8.5-10.1); CREATININE 0.8 mg/dL (0.6-1.0); DIRECT BILIRUBIN 0.1 mg/dL (0.0-0.2); MAGNESIUM 2.1 mg/dL (1.8-2.4); POTASSIUM 3.8 mmol/L (3.5-5.1); TOTAL BILIRUBIN 0.2 mg/dL (0.2-1.0); TOTAL PROTEIN 6.9 g/dL (6.4-8.2)
[2019-02-23 20:52] VITALS: BP 111/69
[2019-02-23] MEDS ORDERED: MAGNESIUM HYDROXIDE 2,400 MG/30 ML ORAL.SUSP. PO ONE (22:00)
--- NOTE | 2019-02-24 06:21 | RAD ---
ACUTE ABDOMEN SERIES History: Abdominal pain and right sided cramping. Comparison: CT abdomen and pelvis with contrast 02/14/2019. Findings: Frontal chest and supine and upright views of the abdomen. Cardiomediastinal silhouette is normal. There is no pleural effusion or pneumothorax. The lungs are clear. No pneumoperitoneum is identified. No dilated air-filled loops of bowel are seen. Bowel gas pattern is nonobstructive. Cholecystectomy clips. There is suture material in the pelvis. 12 mm oval density projects to the left of the L3 vertebral body, not seen on prior study. Density may be a pill. No obvious organomegaly. Bones unremarkable. IMPRESSION: 1. No acute cardiopulmonary process. 2. Nonobstructive bowel gas pattern. Electronically signed by: Herb Aguirre MD (02/24/2019 6:17 AM) [facility]
== END 2019-02-23 21:39 | disposition home or self-care (01) ==
LOC: ER 18:43
DX: K21.9 Gastro-esophageal reflux disease without esophagitis (principal); K59.00 Constipation, unspecified; R11.2 Nausea with vomiting, unspecified; K58.9 Irritable bowel syndrome, unspecified; E78.00 Pure hypercholesterolemia, unspecified; I10 Essential (primary) hypertension; G43.909 Migraine, unspecified, not intractable, without status migrainosus; F17.210 Nicotine dependence, cigarettes, uncomplicated; Z90.89 Acquired absence of other organs; Z90.49 Acquired absence of other specified parts of digestive tract; Z90.710 Acquired absence of both cervix and uterus; Z90.722 Acquired absence of ovaries, bilateral; Z88.8 Allergy status to other drugs, medicaments and biological substances
CPT/HCPCS: 36415; 74022; 80048; 80076; 80307; 81001; 82150; 82550; 83605; 83690; 83735; 83880; 84443; 84484; 85025; 85610; 85730; 93005; 96361; 96374; 96375; 99285; J2405; J3490; J7120

== ENCOUNTER 2019-06-18 09:14 | Emergency (ER) | payer OTHER ==
[~2019-06-18] VITALS: Ht 152.4 cm; Wt 73.0 kg
[~2019-06-18 09:14] MED LIST changes: +SIMV40TA18 PO; -SIMV40TA3 PO
[2019-06-18 09:23] VITALS: BP 162/69
[2019-06-18] MEDS ORDERED: ONDA4TAB12 PO (09:45)
--- NOTE | 2019-06-18 09:45 | PHYS DOC ---
Past History Past Medical History: Anxiety, GERD, High Cholesterol, Hypertension, Migraines, Other Past Surgical History: Appendectomy, Cholecystectomy, Hysterectomy, Oophorectomy Smoking: Cigarettes Alcohol Use: Rarely Drug Use: None Adult General Chief Complaint Chief Complaint: NAUSEA/VOMITING/DIARRHEA HPI HPI 54-year-old female presents with vomiting and diarrhea for the last 2 weeks. She has an episode of vomiting and diarrhea at least once every day. Yesterday, she is episodes of vomiting and diarrhea. She is unable to keep down any liquids or solids. She has not been able take her regular medications. She is not prescribed any antiemetics. She is now concerned about dehydration. She has no appointment tomorrow with her GI doctor, but has been unable to stop vomiting today. She denies fever or chills. Did have recent antibiotic use for an elevated white blood cell count without specific infection diagnosis. Review of Systems Review of Systems Constitutional: Denies fever or chills [] Eyes: Denies change in visual acuity, redness, or eye pain [] HENT: Denies nasal congestion or sore throat [] Respiratory: Denies cough or shortness of breath [] Cardiovascular: No additional information not addressed in HPI [] GI: Generalized abdominal pain, nausea, vomiting, diarrhea [] : Denies dysuria or hematuria [] Musculoskeletal: Denies back pain or joint pain [] Integument: Denies rash or skin lesions [] Neurologic: Denies headache, focal weakness or sensory changes [] Endocrine: Denies polyuria or polydipsia [] All other systems were reviewed and found to be within normal limits, except as documented in this note. Current Medications Current Medications Current Medications Medications (Trade) Dose Ordered Sig/Audrey Start Time Stop Time Status Last Admin Dose Admin Famotidine (Pepcid Vial) 20 mg 1X ONCE 06/18/19 10:00 06/18/19 10:01 Ondansetron HCl (Zofran) 4 mg 1X ONCE 06/18/19 10:00 06/18/19 10:01 Pantoprazole Sodium (Protonix Vial) 40 mg 1X ONCE 06/18/19 10:00 06/18/19 10:01 UNV Sodium Chloride 1,000 ml @ 1,000 mls/hr 1X ONCE 06/18/19 10:00 06/18/19 10:59 Allergies Allergies Allergies Coded Allergies Type Severity Reaction Last Updated Verified naproxen Allergy Intermediate Rash 02/23/19 No Physical Exam Physical Exam Constitutional: Well developed, well nourished, mild acute distress, non-toxic appearance. [] HENT: Normocephalic, atraumatic, bilateral external ears normal, oropharynx dry, no oral exudates, nose normal. [] Eyes: PERRLA, EOMI, conjunctiva normal, no discharge. [] Neck: Normal range of motion, no tenderness, supple, no stridor. [] Cardiovascular:Heart rate regular rhythm, no murmur [] Lungs & Thorax: Bilateral breath sounds clear to auscultation [] Abdomen: Bowel sounds normal, soft, no tenderness, no masses, no pulsatile masses. [] Skin: Warm, dry, no erythema, no rash. [] Back: No tenderness, no CVA tenderness. [] Extremities: No tenderness, no cyanosis, no clubbing, ROM intact, no edema. [] Neurologic: Alert and oriented X 3, normal motor function, normal sensory function, no focal deficits noted. [] Psychologic: Affect normal, judgement normal, mood normal. [] Current Patient Data Vital Signs Vital Signs Date Time Temp Pulse Resp B/P (MAP) Pulse Ox O2 Delivery O2 Flow Rate FiO2 06/18/19 09:23 98.0 93 16 98 Room Air EKG EKG [] Radiology/Procedures Radiology/Procedures [] Course & Med Decision Making Course & Med Decision Making Pertinent Labs and Imaging studies reviewed. (See chart for details) The patient's labs are unremarkable. Given her 4 mg of Zofran for vomiting. She's had no further vomiting. No episodes of diarrhea in the ED. She is feeling better after some fluids and like to go home. She is stable for discharge at this time. [] Dragon Disclaimer Dragon Disclaimer This electronic medical record was generated, in whole or in part, using a voice recognition dictation system. Departure Departure: Impression: Primary Impression: Vomiting Additional Impression: Diarrhea Disposition: HOME, SELF-CARE Condition: STABLE Referrals: ANDREW DAHL [employer] (PCP) Patient Instructions: Nausea and Vomiting, [id number] Scripts Ondansetron (ONDANSETRON ODT) 4 Mg Tab.rapdis 1 TAB PO PRN Q6-8HRS PRN for VOMITING, #16 TAB Prov: ELLEN GORMAN DO 06/18/19 Problem Qualifiers ELLEN GORMAN DO Jun 18, 2019 09:45
[2019-06-18] MEDS ORDERED: ONDANSETRON PF 4 MG/2 ML VIAL. IVP ONE (10:00)
[2019-06-18] MEDS ORDERED: IV NORMAL SALINE 1,000ML 1,000 ML IV ONE (10:00)
[2019-06-18] MEDS ORDERED: FAMOTIDINE 20 MG/2 ML VIAL IVP ONE (10:00)
[2019-06-18] MEDS ORDERED: PANTOPRAZOLE IV 40 MG VIAL. IVP ONE (10:00)
[2019-06-18 10:01] LABS: BASO # 0.1 x10^3/uL (0.0-0.2); BASO % 1 % (0-3); EOS % 0 % (0-3); HEMATOCRIT 49.7 % (36.0-47.0); HEMOGLOBIN 16.4 g/dL (12.0-15.5); LYMPH # 1.7 x10^3/uL (1.0-4.8); LYMPH % 19 % (24-48); MEAN CORPUSCULAR HEMOGLOBIN 29 pg (25-35); MEAN CORPUSCULAR HGB CONC 33 g/dL (31-37); MEAN CORPUSCULAR VOLUME 89 fL (79-100); MONO # 0.5 x10^3/uL (0.0-1.1); MONO % 6 % (0-9); NEUT % 75 % (31-73); PLATELET COUNT 383 x10^3/uL (140-400); RED BLOOD COUNT 5.61 x10^6/uL (3.50-5.40); WHITE BLOOD COUNT 9.4 x10^3/uL (4.0-11.0)
[2019-06-18 10:12] LABS: ALBUMIN 4.2 g/dL (3.4-5.0); CALCIUM 9.3 mg/dL (8.5-10.1); CREATININE 0.8 mg/dL (0.6-1.0); GFR 74.7; POTASSIUM 3.8 mmol/L (3.5-5.1); TOTAL BILIRUBIN 0.5 mg/dL (0.2-1.0); TOTAL PROTEIN 8.5 g/dL (6.4-8.2)
== END 2019-06-18 11:21 | disposition home or self-care (01) ==
LOC: ER 09:14
DX: R11.2 Nausea with vomiting, unspecified (principal); R19.7 Diarrhea, unspecified; R10.84 Generalized abdominal pain; K21.9 Gastro-esophageal reflux disease without esophagitis; E78.00 Pure hypercholesterolemia, unspecified; I10 Essential (primary) hypertension; G43.909 Migraine, unspecified, not intractable, without status migrainosus; F17.210 Nicotine dependence, cigarettes, uncomplicated; Z90.89 Acquired absence of other organs; Z90.49 Acquired absence of other specified parts of digestive tract; Z90.710 Acquired absence of both cervix and uterus; Z90.722 Acquired absence of ovaries, bilateral; Z88.8 Allergy status to other drugs, medicaments and biological substances
CPT/HCPCS: 36415; 80053; 85025; 96361; 96374; 96375; 99285; C9113; J2405; J3490; J7030

== ENCOUNTER 2019-07-24 18:20 | Emergency (ER) | payer OTHER ==
[~2019-07-24] VITALS: Ht 152.4 cm; Wt 76.4 kg
[~2019-07-24 18:20] MED LIST changes: +OMEP-229 PO; -OMEP20CA10 PO; +ONDA4TAB12 PO
[2019-07-24 18:27] VITALS: BP 118/96
[2019-07-24] MEDS ORDERED: IOHEXOL 240 MG/ML 50ML VIAL. ONE (18:48)
--- NOTE | 2019-07-24 18:51 | PHYS DOC ---
Past History Past Medical History: Anxiety, GERD, High Cholesterol, Hypertension, Migraines, Other Additional Past Medical Histor: hiatal hernia Past Surgical History: Appendectomy, Cholecystectomy, Hysterectomy, Oophorectomy Smoking: Cigarettes Alcohol Use: Rarely Drug Use: None Adult General Chief Complaint Chief Complaint: ABDOMINAL PAIN HPI HPI 54-year-old female presents at the recommendation of her GI doctor for upper abdominal pain. The patient has been having intermittent abdominal pain for a few months. She recently had an EGD that showed a hiatal hernia and some other findings. She will have a colonoscopy in the near future. Today the patient presents because she is having upper abdominal cramping and pain. She is used to having pain most days in this area, but today it is worse than she can handle. The pain as an intense, intermittent cramping. She is concerned she may be constipated. She has not had a full bowel movement in 4 days. Small bowel movement yesterday. She has tried suppositories without relief. She has had a couple episodes of vomiting and nausea. She has not taken a laxative. She has decreased appetite. She denies fever or chills. Review of Systems Review of Systems Constitutional: Denies fever or chills [] Eyes: Denies change in visual acuity, redness, or eye pain [] HENT: Denies nasal congestion or sore throat [] Respiratory: Denies cough or shortness of breath [] Cardiovascular: No additional information not addressed in HPI [] GI: Upper abdominal pain, nausea, vomiting, constipation.[] : Denies dysuria or hematuria [] Musculoskeletal: Denies back pain or joint pain [] Integument: Denies rash or skin lesions [] Neurologic: Denies headache, focal weakness or sensory changes [] Endocrine: Denies polyuria or polydipsia [] All other systems were reviewed and found to be within normal limits, except as documented in this note. Current Medications Current Medications Current Medications Medications (Trade) Dose Ordered Sig/Audrey Start Time Stop Time Status Last Admin Dose Admin Ondansetron HCl (Zofran) 4 mg 1X ONCE 07/24/19 18:45 07/24/19 18:46 DC Sodium Chloride 1,000 ml @ 1,000 mls/hr 1X ONCE 07/24/19 18:45 07/24/19 19:44 Allergies Allergies Allergies Coded Allergies Type Severity Reaction Last Updated Verified naproxen Allergy Intermediate Rash 07/24/19 No Physical Exam Physical Exam Constitutional: Well developed, well nourished, no acute distress, non-toxic appearance. [] HENT: Normocephalic, atraumatic, bilateral external ears normal, oropharynx moist, no oral exudates, nose normal. [] Eyes: PERRLA, EOMI, conjunctiva normal, no discharge. [] Neck: Normal range of motion, no tenderness, supple, no stridor. [] Cardiovascular:Heart rate regular rhythm, no murmur [] Lungs & Thorax: Bilateral breath sounds clear to auscultation [] Abdomen: Bowel sounds normal, soft, moderate epigastric tenderness without rebound, no masses, no pulsatile masses. [] Skin: Warm, dry, no erythema, no rash. [] Back: No tenderness, no CVA tenderness. [] Extremities: No tenderness, no cyanosis, no clubbing, ROM intact, no edema. [] Neurologic: Alert and oriented X 3, normal motor function, normal sensory function, no focal deficits noted. [] Psychologic: Affect normal, judgement normal, mood normal. [] Current Patient Data Vital Signs Vital Signs Date Time Temp Pulse Resp B/P (MAP) Pulse Ox O2 Delivery O2 Flow Rate FiO2 07/24/19 18:27 97.8 88 18 100 Room Air EKG EKG [] Radiology/Procedures Radiology/Procedures [] Impressions: PQRS Compliance Statement: One or more of the following individualized dose reduction techniques were utilized for this examination: 1. Automated exposure control 2. Adjustment of the mA and/or kV according to patient size 3. Use of iterative reconstruction technique CT ABD PELV W/ORAL IV CONTRAST Clinical Indication: Upper abdominal pain and constipation. Comparison: CT abdomen and pelvis with contrast February 14, 2019. Technique: Helical CT imaging of the abdomen and pelvis is performed after 75 cc of Omnipaque 300 IV contrast. Oral contrast also given. Findings: Minimal atelectasis in the posterior right lower lobe. Cardiac size normal. Cholecystectomy. Liver, spleen, pancreas, adrenal glands, abdominal aorta, and kidneys are normal. Stomach unremarkable. There is no small bowel obstruction, oral contrast reaches the colon. Appendectomy. There is no colon wall thickening. There is scattered stool in the colon. No abdominal adenopathy or free fluid. Urinary bladder is mildly distended, otherwise normal. Hysterectomy. No pelvic free fluid. No acute bone abnormality. IMPRESSION: No acute abdominal or pelvic abnormality. Electronically signed by: Herb Blas MD (07/24/2019 8:34 PM) [facility] DICTATED AND SIGNED BY: HERB BLAS MD DATE: 07/24/192033 CC: ELLEN GORMAN DO; ANDREW DAHL [employer] ~ Course & Med Decision Making Course & Med Decision Making Pertinent Labs and Imaging studies reviewed. (See chart for details) The patient's labs are unremarkable. Her urinalysis is negative for infection. Her CT of the abdomen and pelvis does not show any significant findings. She does have some stool retention, especially in the ascending and transverse colon. I have advised him magnesium citrate bowel cleanout at home. The patient is stable for discharge at this time. [] Dragon Disclaimer Dragon Disclaimer This electronic medical record was generated, in whole or in part, using a voice recognition dictation system. Departure Departure: Impression: Primary Impression: Constipation by delayed colonic transit Disposition: HOME, SELF-CARE Condition: STABLE Referrals: ANDREW DAHL [employer] (PCP) Patient Instructions: Constipation, Adult, [id number] ELLEN GORMAN DO Jul 24, 2019 18:51
[2019-07-24] MEDS: ONDANSETRON PF 4 MG/2 ML VIAL. IVP ONE (19:09)
[2019-07-24] MEDS: IV NORMAL SALINE 1,000ML 1,000 ML IV ONE (19:10)
[2019-07-24 19:44] LABS: BASO # 0.1 x10^3/uL (0.0-0.2); BASO % 1 % (0-3); EOS % 1 % (0-3); HEMATOCRIT 42.1 % (36.0-47.0); LYMPH # 3.7 x10^3/uL (1.0-4.8); LYMPH % 38 % (24-48); MEAN CORPUSCULAR HEMOGLOBIN 29 pg (25-35); MEAN CORPUSCULAR HGB CONC 33 g/dL (31-37); MEAN CORPUSCULAR VOLUME 88 fL (79-100); MONO # 0.8 x10^3/uL (0.0-1.1); MONO % 8 % (0-9); NEUT # 5.2 x10^3uL (1.8-7.7); NEUT % 53 % (31-73); PLATELET COUNT 313 x10^3/uL (140-400); RED BLOOD COUNT 4.77 x10^6/uL (3.50-5.40); RED CELL DISTRIBUTION WIDTH 13.8 % (11.5-14.5); WHITE BLOOD COUNT 9.8 x10^3/uL (4.0-11.0)
[2019-07-24 19:52] LABS: CALCIUM 8.8 mg/dL (8.5-10.1); CREATININE 0.7 mg/dL (0.6-1.0); GFR 87.2; POTASSIUM 4.1 mmol/L (3.5-5.1)
[2019-07-24 19:57] LABS: BILIRUBIN,URINE NEG (NEG); CLARITY,URINE CLEAR; COLOR,URINE STRAW; GLUCOSE,URINE NEG (NEG); NITRITE,URINE NEG (NEG); UROBILINOGEN,URINE 0.2 mg/dL (0.2 mg/dL)
[2019-07-24 19:58] LABS: ALBUMIN 3.8 g/dL (3.4-5.0); ALBUMIN/GLOBULIN RATIO 1.2 (1.0-1.7); TOTAL BILIRUBIN 0.2 mg/dL (0.2-1.0); TOTAL PROTEIN 6.9 g/dL (6.4-8.2)
[2019-07-24 20:04] LABS: BACTERIA,URINE FEW /HPF (0-FEW); SQUAMOUS EPITHELIAL CELL,UR FEW /LPF; WBC,URINE OCC /HPF (0-4)
[2019-07-24] MEDS: IOHEXOL 300 MG/ML 75 ML VIAL. IV ONE (20:16)
[2019-07-24] MEDS: SUMAtriptan SUCCINATE 50 MG TABLET PO ONE (20:29)
--- NOTE | 2019-07-24 20:37 | RAD ---
PQRS Compliance Statement: One or more of the following individualized dose reduction techniques were utilized for this examination: 1. Automated exposure control 2. Adjustment of the mA and/or kV according to patient size 3. Use of iterative reconstruction technique CT ABD PELV W/ORAL IV CONTRAST Clinical Indication: Upper abdominal pain and constipation. Comparison: CT abdomen and pelvis with contrast February 14, 2019. Technique: Helical CT imaging of the abdomen and pelvis is performed after 75 cc of Omnipaque 300 IV contrast. Oral contrast also given. Findings: Minimal atelectasis in the posterior right lower lobe. Cardiac size normal. Cholecystectomy. Liver, spleen, pancreas, adrenal glands, abdominal aorta, and kidneys are normal. Stomach unremarkable. There is no small bowel obstruction, oral contrast reaches the colon. Appendectomy. There is no colon wall thickening. There is scattered stool in the colon. No abdominal adenopathy or free fluid. Urinary bladder is mildly distended, otherwise normal. Hysterectomy. No pelvic free fluid. No acute bone abnormality. IMPRESSION: No acute abdominal or pelvic abnormality. Electronically signed by: Herb Aguirre MD (07/24/2019 8:34 PM) [facility]
[2019-07-24] MEDS: MAGNESIUM CITRATE 296 ML SOLUTION. PO ONE (21:00)
== END 2019-07-24 21:05 | disposition home or self-care (01) ==
LOC: ER 18:20
DX: K59.01 Slow transit constipation (principal); R11.2 Nausea with vomiting, unspecified; F41.9 Anxiety disorder, unspecified; K21.9 Gastro-esophageal reflux disease without esophagitis; E78.00 Pure hypercholesterolemia, unspecified; I10 Essential (primary) hypertension; F17.210 Nicotine dependence, cigarettes, uncomplicated; G43.909 Migraine, unspecified, not intractable, without status migrainosus; Z90.89 Acquired absence of other organs; Z90.49 Acquired absence of other specified parts of digestive tract; Z90.710 Acquired absence of both cervix and uterus; Z90.722 Acquired absence of ovaries, bilateral; Z88.8 Allergy status to other drugs, medicaments and biological substances
CPT/HCPCS: 36415; 74177; 80053; 81001; 83690; 85025; 96361; 96374; 99285; J2405; Q9967; J7030

== ENCOUNTER 2020-05-12 02:41 | Emergency (ER) | payer OTHER ==
[~2020-05-12] VITALS: Ht 152.4 cm; Wt 79.0 kg
[~2020-05-12 02:41] MED LIST changes: -OMEP-229 PO; +OMEP20CA16 PO
[2020-05-12 03:11] VITALS: BP 118/94
--- NOTE | 2020-05-12 03:13 | PHYS DOC ---
Past History Past Medical History: Anxiety, GERD, High Cholesterol, Hypertension, Migraines, Other Additional Past Medical Histor: hiatal hernia Past Surgical History: Appendectomy, Cholecystectomy, Hysterectomy, Oophorectomy Smoking: Cigarettes Alcohol Use: Rarely Drug Use: None General Adult EDM: Chief Complaint: Flank pain HPI: HPI: 55-year-old female presents with right flank pain radiating into her right groi n. The patient's been having some intermittent discomfort for couple of days. It got worse this evening but the patient thought she could make it to the walk- in clinic tomorrow morning. She woke up to go to the restroom and after urinating she had pain that was 8 out of 10. It brought her to her knees. She decided to come in the emergency room. Her pain is still an 8 out of 10. She has a history of kidney stones. She usually is able to pass them. She has not had a procedure or stent in the past. She states that this pain feels similar to her previous. She denies fever or chills. She has had increased urinary frequency and dysuria. She has a history of cholecystectomy and appendectomy. Review of Systems: Review of Systems: Constitutional: Denies fever or chills Eyes: Denies change in visual acuity HENT: Denies nasal congestion or sore throat Respiratory: Denies cough or shortness of breath Cardiovascular: Denies chest pain or edema GI: Right lower quadrant abdominal pain. Denies nausea, vomiting, bloody stools or diarrhea : Dysuria, urinary frequency Musculoskeletal: Right flank pain Integument: Denies rash Neurologic: Denies headache, focal weakness or sensory changes Endocrine: Denies polyuria or polydipsia Lymphatic: Denies swollen glands Psychiatric: Denies depression or anxiety Heart Score: Risk Factors: Risk Factors: DM, Current or recent (<one month) smoker, HTN, HLP, family history of CAD, obesity. Risk Scores: Score 0 - 3: 2.5% MACE over next 6 weeks - Discharge Home Score 4 - 6: 20.3% MACE over next 6 weeks - Admit for Clinical Observation Score 7 - 10: 72.7% MACE over next 6 weeks - Early Invasive Strategies Current Medications: Current Meds: Current Medications Medications (Trade) Dose Ordered Sig/Audrey Start Time Stop Time Status Last Admin Dose Admin Sodium Chloride 1,000 ml @ 1,000 mls/hr 1X ONCE 05/12/20 03:15 05/12/20 04:14 UNV Allergies: Allergies: Allergies Coded Allergies Type Severity Reaction Last Updated Verified naproxen Allergy Intermediate Rash 07/24/19 No Physical Exam: PE: Constitutional: Well developed, well nourished, no acute distress, non-toxic appearance. [] HENT: Normocephalic, atraumatic, bilateral external ears normal, oropharynx moist, no oral exudates, nose normal. [] Eyes: PERRLA, EOMI, conjunctiva normal, no discharge. [] Neck: Normal range of motion, no tenderness, supple, no stridor. [] Cardiovascular:Heart rate regular rhythm, no murmur [] Lungs & Thorax: Bilateral breath sounds clear to auscultation [] Abdomen: Bowel sounds normal, soft, right lower quadrant tenderness, no masses, no pulsatile masses. [] Skin: Warm, dry, no erythema, no rash. [] Back: No tenderness, right CVA tenderness. [] Extremities: No tenderness, no cyanosis, no clubbing, ROM intact, no edema. [] Neurologic: Alert and oriented X 3, normal motor function, normal sensory function, no focal deficits noted. [] Psychologic: Affect normal, judgement normal, mood normal. [] EKG: EKG: [] Radiology/Procedures: Radiology/Procedures: [] Impressions: CT abdomen and pelvis without contrast PQRS statement: CT scans at this facility use dose reduction including either automated exposure control, iterative reconstructions, and /or weight based radiation dosing via mA and kV modification when appropriate to reduce radiation dose to as low as reasonably achievable. HISTORY: Severe right flank pain, history of kidney stones. COMPARISON: CT abdomen and pelvis April 24, 2019. Abdomen findings: Cholecystectomy. Liver, spleen, adrenal glands, pancreas and kidneys are unremarkable. No urinary calculi or hydronephrosis. No renal edema. Small accessory spleen. No obstruction or inflammation the GI tract. Appendectomy. Aortoiliac artery calcified plaque. No abdominal fluid. Pelvis findings: Hysterectomy. Salpingo-oophorectomy. No bladder calculi. Rectum and bones are unremarkable. IMPRESSION: No acute process. No urinary calculi or hydronephrosis. Appendectomy. Electronically signed by: Jamila Johnson MD (05/12/2020 3:30 AM) [facility] [place] SIGNED BY: JAMILA JOHNSON MD DATE: 05/12/20 0330 CC: ELLEN GORMAN DO; DEYA HE ~ Course & Med Decision Making: Course & Med Decision Making Pertinent Labs and Imaging studies reviewed. (See chart for details) The patient CT scan does not show any kidney stone. It is negative for acute findings. The patient's labs are unremarkable. Her urinalysis shows a significant urinary tract infection. I will treat her with a gram of Rocephin in the ED followed by 5 more days of Keflex. She is stable for discharge at this time. [] Dragon Disclaimer: Dragon Disclaimer: This electronic medical record was generated, in whole or in part, using a voice recognition dictation system. Departure Departure: Impression: Primary Impression: Urinary tract infection Qualified Codes: N30.01 - Acute cystitis with hematuria Disposition: HOME/RESIDENCE PRIOR TO ADM Condition: STABLE Referrals: DEYA HE (PCP) Patient Instructions: Urinary Tract Infection, [id number] Scripts Cephalexin (KEFLEX) 500 Mg Capsule 1 CAP PO TID for UTI for 5 Days, #15 CAP 0 Refills Prov: ELLEN GORMAN DO 05/12/20 ELLEN GORMAN DO May 12, 2020 03:13
[2020-05-12 03:24] LABS: BASO % 0 % (0-3); EOS % 0 % (0-3); HEMATOCRIT 41.3 % (36.0-47.0); HEMOGLOBIN 13.7 g/dL (12.0-15.5); LYMPH # 3.6 x10^3/uL (1.0-4.8); LYMPH % 31 % (24-48); MEAN CORPUSCULAR HEMOGLOBIN 30 pg (25-35); MEAN CORPUSCULAR HGB CONC 33 g/dL (31-37); MEAN CORPUSCULAR VOLUME 89 fL (79-100); MONO # 0.9 x10^3/uL (0.0-1.1); MONO % 8 % (0-9); NEUT # 7.2 x10^3uL (1.8-7.7); NEUT % 61 % (31-73); PLATELET COUNT 409 x10^3/uL (140-400); RED BLOOD COUNT 4.62 x10^6/uL (3.50-5.40); RED CELL DISTRIBUTION WIDTH 13.3 % (11.5-14.5); WHITE BLOOD COUNT 11.8 x10^3/uL (4.0-11.0)
[2020-05-12] MEDS ORDERED: MORPHINE SULFATE 4 MG/ML DISP.SYRIN. IV ONE (03:30)
[2020-05-12] MEDS ORDERED: IV NORMAL SALINE 1,000ML 1,000 ML IV ONE (03:30)
[2020-05-12] MEDS ORDERED: ONDANSETRON PF 4 MG/2 ML VIAL. IVP ONE (03:30)
--- NOTE | 2020-05-12 03:33 | RAD ---
CT abdomen and pelvis without contrast PQRS statement: CT scans at this facility use dose reduction including either automated exposure control, iterative reconstructions, and /or weight based radiation dosing via mA and kV modification when appropriate to reduce radiation dose to as low as reasonably achievable. HISTORY: Severe right flank pain, history of kidney stones. COMPARISON: CT abdomen and pelvis April 24, 2019. Abdomen findings: Cholecystectomy. Liver, spleen, adrenal glands, pancreas and kidneys are unremarkable. No urinary calculi or hydronephrosis. No renal edema. Small accessory spleen. No obstruction or inflammation the GI tract. Appendectomy. Aortoiliac artery calcified plaque. No abdominal fluid. Pelvis findings: Hysterectomy. Salpingo-oophorectomy. No bladder calculi. Rectum and bones are unremarkable. IMPRESSION: No acute process. No urinary calculi or hydronephrosis. Appendectomy. Electronically signed by: Rah Johnson MD (05/12/2020 3:30 AM) [facility]
[2020-05-12 03:37] LABS: BILIRUBIN,URINE NEG (NEG); CLARITY,URINE CLOUDY; COLOR,URINE YELLOW; GLUCOSE,URINE NEG (NEG); NITRITE,URINE POS (NEG); UROBILINOGEN,URINE 0.2 mg/dL (0.2 mg/dL)
[2020-05-12 03:38] LABS: BACTERIA,URINE MANY /HPF (0-FEW); RBC,URINE OCC /HPF (0-2); SQUAMOUS EPITHELIAL CELL,UR OCC /LPF; WBC,URINE >40 /HPF (0-4)
[2020-05-12 03:42] LABS: GFR 57.6; POTASSIUM 3.8 mmol/L (3.5-5.1)
[2020-05-12 04:00] LABS: ALBUMIN 3.5 g/dL (3.4-5.0); ALBUMIN/GLOBULIN RATIO 0.9 (1.0-1.7); TOTAL BILIRUBIN 0.1 mg/dL (0.2-1.0); TOTAL PROTEIN 7.2 g/dL (6.4-8.2)
[2020-05-12] MEDS ORDERED: CEPH-264 PO (04:03)
[2020-05-12] MEDS ORDERED: cefTRIAXone SODIUM 1 GM VIAL ONE (04:19)
[2020-05-12] MEDS ORDERED: IV NORMAL SALINE 50ML 50 ML ONE (04:19)
== END 2020-05-12 05:18 | disposition home or self-care (01) ==
LOC: ER 02:41
DX: N30.01 Acute cystitis with hematuria (principal); K21.9 Gastro-esophageal reflux disease without esophagitis; E78.00 Pure hypercholesterolemia, unspecified; I10 Essential (primary) hypertension; G43.909 Migraine, unspecified, not intractable, without status migrainosus; F17.210 Nicotine dependence, cigarettes, uncomplicated; Z90.49 Acquired absence of other specified parts of digestive tract; Z90.89 Acquired absence of other organs; Z90.710 Acquired absence of both cervix and uterus; Z90.722 Acquired absence of ovaries, bilateral; Z88.6 Allergy status to analgesic agent
CPT/HCPCS: 36415; 74176; 80053; 81001; 85025; 87086; 96361; 96365; 96375; 99284; J0696; J2270; J2405; J7030

== ENCOUNTER → 2020-06-24 | Outpatient (CLI) | payer OTHER ==
[~2020-06-24] MED LIST changes: +CEPH-264 PO
== END ==
LOC: LAB 09:08
PROVIDERS: ATTEND Family Medicine
DX: R05 Cough (principal); R50.9 Fever, unspecified; Z20.828 Contact with and (suspected) exposure to other viral communicable diseases
CPT/HCPCS: U0003

== ENCOUNTER → 2020-07-06 | Outpatient (CLI) | payer OTHER ==
--- NOTE | 2020-07-06 10:46 | RAD ---
EXAM: CHEST 2 VIEWS. HISTORY: Left wheezing and back pain. COMPARISON: 05/03/2017. FINDINGS: Frontal and lateral views of the chest are obtained. There are mild bilateral perihilar predominant reticulonodular opacities. There is no pneumothorax or pleural effusion. The heart is not enlarged. Cholecystectomy clips are noted. IMPRESSION: 1. Mild bilateral perihilar infiltrates. Correlate for atypical pneumonia or interstitial lung disease. Electronically signed by: Mele Abel MD (07/06/2020 10:43 AM) [facility]
== END ==
LOC: RAD 09:18
PROVIDERS: ATTEND Physician Assistant Medical
DX: J40 Bronchitis, not specified as acute or chronic (principal); Z90.49 Acquired absence of other specified parts of digestive tract
CPT/HCPCS: 71046

== ENCOUNTER → 2020-07-06 | Outpatient (CLI) | payer BC, OTHER | LOC: LAB 13:45 | PROVIDERS: ATTEND Physician Assistant Medical | DX: Z20.828 Contact with and (suspected) exposure to other viral communicable diseases (principal); B97.29 Other coronavirus as the cause of diseases classified elsewhere | CPT/HCPCS: U0003 ==

== ENCOUNTER 2020-07-18 15:04 | Emergency (ER) | payer OTHER ==
[~2020-07-18] VITALS: Ht 152.4 cm; Wt 79.0 kg
--- NOTE | 2020-07-18 16:15 | RAD ---
Indications: Injury and pain. 3 view left ankle study: No acute fracture or dislocation or lytic process is seen. The mortise ankle joint is intact. 3 view study of the left foot: No acute fracture or dislocation or lytic process is seen. Tiny planta r spur of the calcaneus is seen. Small posterior spur of the calcaneus is evident. There is mild prim leonela degenerative osteoarthritis and spurring of the first metatarsal phalangeal joint. No periosteal reaction is evident. Two-view study of the left tibia and fibula: No acute fracture or dislocation or lytic process is see n. No significant arthritic change of the left knee joint is seen. IMPRESSION: No acute fracture. Electronically signed by: Nabil Stearns MD (07/18/2020 4:13 PM) [id number]
--- NOTE | 2020-07-18 16:26 | PHYS DOC ---
Past History Past Medical History: Anxiety, GERD, High Cholesterol, Hypertension, Kidney Stones, Migraines, Other Additional Past Medical Histor: hiatal hernia Past Surgical History: Appendectomy, Cholecystectomy, Hysterectomy, Oophorectomy Smoking: Cigarettes Alcohol Use: None Drug Use: None General Adult EDM: Chief Complaint: LOWER EXTREMITY SWELLING HPI: HPI: 55 yo F presents to the ED with complaints of left lateral ankle pain after patient accidentally rolled her ankle (describes/shows me an eversion injury) last night after getting up from the couch, states her foot was asleep and she fell onto her table. Did not hit her head or lose consciousness. Is not on any anticoagulants. Has not injured this ankle before. Is able to bear weight but reports it feels better to walk on her toes. No relief with Tylenol and ibuprofen prior to arrival. Does not take routine narcotics or have any history with addiction. No associated pain over her toes, knee fibular head or foot. Just completed 5 days of azithromycin after Covid exposure (has had a total of 8 - Covid test during this pandemic). No recent fluoroquinolone use. Review of Systems: Review of Systems: Constitutional: Denies fever or chills HENT: Denies nasal congestion or sore throat Respiratory: Denies cough or shortness of breath Cardiovascular: Denies chest pain or syncope Musculoskeletal: Denies back pain or foot drop Integument: Denies rash or diaphoresis Neurologic: Denies headache, radiculopathy focal weakness or sensory changes Allergies: Allergies: Allergies Coded Allergies Type Severity Reaction Last Updated Verified naproxen Allergy Intermediate Rash 07/24/19 No Physical Exam: PE: Constitutional: Well developed, well nourished, no acute distress, non-toxic appearance. HENT: Normocephalic, atraumatic, Eyes: EOMI, conjunctiva normal, no discharge. Neck: Normal range of motion, supple, Cardiovascular: S1/2 present, regular rhythm Lungs & Thorax: Speaking in full sentences, bilateral equal chest rise, no tachypnea or increased work of breathing Skin: Warm, dry, no erythema, no rash. [] Extremities: Left lateral malleolus swollen (2-3 x size of R malleoli) )and tender with distal fibular tenderness, anterior distal tibia tenderness, no fibular head/knee/hip TTP, lower extremity pulses intact, no plantar ecchymosis, normal left ankle dorsiflexion and plantarflexion Neurologic: Alert and oriented X 3, normal motor function, normal sensory function, no focal deficits noted. [] Current Patient Data: Vital Signs: Vital Signs Date Time Temp Pulse Resp B/P (MAP) Pulse Ox O2 Delivery O2 Flow Rate FiO2 07/18/20 15:12 97.8 96 16 126/79 (95) 98 Room Air EKG: EKG: [] Radiology/Procedures: Radiology/Procedures: IMAGING REPORT Signed PATIENT: SANTI MIRANDA LACCOUNT: [id number] : 1965 LOCATION: ER AGE: 55 SEX: F EXAM STATUS: REG ER ORD. PHYSICIAN: DEYA WISE DO REASON: left ankjle pain PROCEDURE: TIBIA FIBULA LEFT Indications: Injury and pain. 3 view left ankle study: No acute fracture or dislocation or lytic process is seen. The mortise ankle joint is intact. 3 view study of the left foot: No acute fracture or dislocation or lytic process is seen. Tiny plantar spur of the calcaneus is seen. Small posterior spur of the calcaneus is evident. There is mild primary degenerative osteoarthritis and spurring of the first metatarsal phalangeal joint. No periosteal reaction is evident. Two-view study of the left tibia and fibula: No acute fracture or dislocation or lytic process is seen. No significant arthritic change of the left knee joint is seen. IMPRESSION: No acute fracture. Electronically signed by: Nabil Stearns MD (07/18/2020 4:13 PM) [id number] DICTATED AND SIGNED BY: NABIL STEARNS MD DATE: 07/18/20 1609 CC: DEYA EH; DEYA WISE DO ~MTH0 0 Heart Score: Risk Factors: Risk Factors: DM, Current or recent (<one month) smoker, HTN, HLP, family history of CAD, obesity. Risk Scores: Score 0 - 3: 2.5% MACE over next 6 weeks - Discharge Home Score 4 - 6: 20.3% MACE over next 6 weeks - Admit for Clinical Observation Score 7 - 10: 72.7% MACE over next 6 weeks - Early Invasive Strategies Course & Med Decision Making: Course & Med Decision Making Pertinent Labs and Imaging studies reviewed. (See chart for details) Concern for left lateral ankle sprain. Analgesia given in ED-we will not drive home. Recommend rice instructions and outpatient Tylenol ibuprofen. Patient declined crutches and splint but was provided an ankle brace/wrap by rn. Will discharge home with strict ED return precautions for severe ankle pain, swelling, rash, neurologic deficits. Encouraged urgent outpatient follow-up with PMD and orthopedic surgery-may benefit from further imaging if pain persists. Life-threatening processes were considered but are low suspicion at this time, given history, physical exam and ED workup. Pt was educated on all prescription medications and adverse effects. All patient's questions were answered and pt was stable at time of discharge. Life/limb-threatening differential includes but is not limited to, fractures or joint dislocations, neurovascular injuries or compartment syndrome. I spoken with the patient and her caregivers. I explained the patient's condition, diagnoses and treatment plan based on the information available to me at this time. I have answered the patient and her caregiver's questions and addressed any concerns. The patient and her caregivers have a good understanding of patient's diagnosis, condition and treatment plan as can be expected at this point. Vital signs have been stable. Patient's condition is stable and appropriate for discharge from the emergency department. Patient will pursue further outpatient evaluation with primary care physician or other designated or consulting physician as outlined in the discharge instru ctions. The patient and/or caregivers are agreeable to this plan of care and follow-up instructions have been explained in detail. The patient and/or caregivers have received these instructions in written form and have expressed an understanding of the discharge instructions. The patient and/or caregivers are aware that any significant change of condition or worsening of symptoms should prompt immediate return to this or the closest emergency department or call to 911. Veda Disclaimer: Veda Disclaimer: This electronic medical record was generated, in whole or in part, using a voice recognition dictation system. Departure Departure: Impression: Primary Impression: Left ankle sprain Additional Impression: Left ankle swelling Disposition: 01 DC HOME SELF CARE/HOMELESS Condition: STABLE Referrals: DEYA HE (PCP) for routine care Patient Instructions: Ankle Sprain, RICE - Routine Care for Injuries Additional Instructions: FOLLOW UP WITH ORTHOPEDICS: [facility] [address] [facility], [address] [place] [address] EMERGENCY DEPARTMENT GENERAL DISCHARGE INSTRUCTIONS Thank you for coming to [facility] (ED) today and trusting us with you care. We trust that you had a positivie experience in our Emergency Department. If you wish to speak to the department management, you may call the director at [phone]. YOUR FOLLOW UP INSTRUCTIONS ARE FOLLOWS: 1. Do you have a private Doctor? If you do not have a private doctor, please ask for a resource list of physicians or clinics that may be able to assist you with follow up care. 2. The Emergency Physician has interpreted your x-rays. The X-Ray specialist will also review them. If there is a change in the findings, you will be notified in 48 hours when at all possible. 3. A lab test or culture has been done, your results will be reviewed and you will be notified if you need a change in treatment. ADDITIONAL INSTRUCTIONS AND INFORMATION: 1. Your care today has been supervised by a physician who is specially trained in emergency care. Many problems require more than one evaluation for a complete diagnosis and treatment. We recommend that you schedule your follow up appointment as recommended to ensure complete treatment of you illness or injury. If you are unable to obtain follow up care and continue to have a problem, or if your condition worsens, we recommend that you return to the ED. 2. We are not able to safely determine your condition over the phone nor are we able to give sound medical advice over the phone. For these safety reasons, if you call for medical advice we will ask you to come to the ED for further evaluation. 3. If you have any questions regarding these discharge instructions please call the ED at [phone]. SAFETY INFORMATION: In the interest of safety, wellness, and injury prevention; we encourage you to wear your sealbelt, if you smoke; quite smoking, and we encourage family to use a protective helmet for bicycling and other sporting events that present an increased risk for head injury. IF YOUR SYMPTOMS WORSEN OR NEW SYMPTOMS DEVELOP, OR YOU HAVE CONCERNS ABOUT YOUR CONDITION; OR IF YOUR CONDITION WORSENS WHILE YOU ARE WAITING FOR YOUR FOLLOW UP APPOINTMENT; EITHER CONTACT YOUR PRIMARY CARE DOCTOR, THE PHYSICIAN WHOSE NAME AND NUMBER YOU WERE GIVEN, OR RETURN TO THE ED IMMEDIATELY. DEYA WISE DO Jul 18, 2020 16:26
[2020-07-18 16:45] VITALS: BP 141/67
[2020-07-18] MEDS ORDERED: HYDROcodone/APAP 5/325MG 1 TAB TABLET PO ONE (16:45)
== END 2020-07-18 16:52 | disposition home or self-care (01) ==
LOC: ER 15:04
DX: S93.402A Sprain of unspecified ligament of left ankle, initial encounter (principal); F41.9 Anxiety disorder, unspecified; K21.9 Gastro-esophageal reflux disease without esophagitis; E78.00 Pure hypercholesterolemia, unspecified; I10 Essential (primary) hypertension; G43.909 Migraine, unspecified, not intractable, without status migrainosus; Z87.442 Personal history of urinary calculi; F17.210 Nicotine dependence, cigarettes, uncomplicated; Z88.8 Allergy status to other drugs, medicaments and biological substances; W18.39XA Other fall on same level, initial encounter; Y93.89 Activity, other specified; Y92.89 Other specified places as the place of occurrence of the external cause; Y99.8 Other external cause status
CPT/HCPCS: 73590; 73610; 73630; 99284

== ENCOUNTER → 2021-04-27 | Outpatient (CLI) | payer MEDICAID ==
--- NOTE | 2021-04-27 16:30 | RAD ---
XR EXAM OF ANKLE_LEFT 3V Clinical indications: Reason: LEFT ANKLE PAIN AND SWELLING, HX OF SPRAIN 2 MONTHS AGO / Spl. Instruct ions: / History: Findings: No acute fracture or dislocation or osteolytic process is evident. The mortise ankle joint is intact. IMPRESSION: No acute osseous abnormality is evident. Electronically signed by: Nabil Stearns MD (04/27/2021 4:27 PM) [id number]
== END ==
LOC: RAD 16:06
PROVIDERS: ATTEND Nurse Practitioner Family
DX: M25.472 Effusion, left ankle (principal); M25.572 Pain in left ankle and joints of left foot
CPT/HCPCS: 73610

== ENCOUNTER → 2021-05-17 | Outpatient (CLI) | payer MEDICAID ==
--- NOTE | 2021-05-17 13:21 | RAD ---
Left ankle 3 views. HISTORY: Medial left ankle pain 3 views were taken of the left ankle. There is not evidence of an acute fracture or osseous abnormali ty. There is mild soft tissue swelling. IMPRESSION: 1. No acute fracture noted in the left ankle. Electronically signed by: Wyatt Ordaz MD (05/17/2021 1:19 PM) [facility]
== END ==
LOC: RAD 12:55
PROVIDERS: ATTEND Nurse Practitioner Family
DX: S99.912A Unspecified injury of left ankle, initial encounter (principal); M79.89 Other specified soft tissue disorders; X58.XXXA Exposure to other specified factors, initial encounter; Y93.89 Activity, other specified; Y92.89 Other specified places as the place of occurrence of the external cause; Y99.8 Other external cause status
CPT/HCPCS: 73610

== ENCOUNTER 2021-07-13 17:30 | Emergency (ER) | payer MEDICAID ==
[~2021-07-13] VITALS: Ht 152.4 cm; Wt 86.2 kg
[~2021-07-13 17:30] MED LIST changes: -CYCL-331 PO; +CYCL10TA19 PO
--- NOTE | 2021-07-13 17:52 | PHYS DOC ---
Past History Past Medical History: Anxiety, GERD, High Cholesterol, Hypertension, Kidney Stones, Migraines, Other Additional Past Medical Histor: hiatal hernia (ROBERT FALLON APRN) Past Surgical History: Appendectomy, Cholecystectomy, Hysterectomy, Oophorectomy (ROBERT FALLON APRN) Smoking: Cigarettes Alcohol Use: None Drug Use: None (ROBERT FALLON APRN) General Adult EDM: Chief Complaint: FLANK PAIN HPI: HPI: Patient is a 56-year-old female that presents today with right flank right lower quadrant abdominal pain. Patient states pain has been on and off for the last 12 to 24 hours, states pain in the last 2 to 3 hours has gotten worse. Patient does have a history of kidney stones and states this feels like a kidney stone. Patient denies gustavo blood in her urine, she does have nausea (ROBERT FALLON APRN) Review of Systems: Review of Systems: Constitutional: Denies fever or chills Eyes: Denies change in visual acuity HENT: Denies nasal congestion or sore throat Respiratory: Denies cough or shortness of breath Cardiovascular: Denies chest pain or edema GI: Right flank lower abdominal pain, nausea, denies vomiting and diarrhea : Denies dysuria Musculoskeletal: Denies back pain or joint pain Integument: Denies rash Neurologic: Denies headache, focal weakness or sensory changes Endocrine: Denies polyuria or polydipsia Lymphatic: Denies swollen glands Psychiatric: Denies depression or anxiety (ROBERT FALLON APRN) Allergies: Allergies: Allergies Coded Allergies Type Severity Reaction Last Updated Verified naproxen Allergy Intermediate Rash 07/24/19 No (ROBERT FALLON APRN) Physical Exam: PE: Constitutional: Well developed, well nourished, moderate distress, non-toxic appearance. [] HENT: Normocephalic, atraumatic, bilateral external ears normal, oropharynx moist, no oral exudates, nose normal. [] Eyes: PERRLA, EOMI, conjunctiva normal, no discharge. [] Neck: Normal range of motion, no tenderness, supple, no stridor. [] Cardiovascular:Heart rate regular rhythm, no murmur [] Lungs & Thorax: Bilateral breath sounds clear to auscultation [] Abdomen: Abdomen soft, pain with palpation to the right flank right lower quadra nt area, no lacerations, abrasions, contusions, or ecchymosis noted, bowel sounds are Skin: Warm, dry, no erythema, no rash. [] Back: No tenderness, no CVA tenderness. [] Extremities: No tenderness, no cyanosis, no clubbing, ROM intact, no edema. [] Neurologic: Alert and oriented X 3, normal motor function, normal sensory function, no focal deficits noted. [] Psychologic: Affect normal, judgement normal, mood normal. [] (ROBERT FALLON APRN) Current Patient Data: Labs: Laboratory Tests Test 07/13/21 17:34 White Blood Count 10.9 x10^3/uL Red Blood Count 4.87 x10^6/uL Hemoglobin 14.7 g/dL Hematocrit 43.4 % Mean Corpuscular Volume 89 fL Mean Corpuscular Hemoglobin 30 pg Mean Corpuscular Hemoglobin Concent 34 g/dL Red Cell Distribution Width 13.4 % Platelet Count 393 x10^3/uL Neutrophils (%) (Auto) 52 % Lymphocytes (%) (Auto) 40 % Monocytes (%) (Auto) 8 % Eosinophils (%) (Auto) 0 % Basophils (%) (Auto) 1 % Neutrophils # (Auto) 5.7 x10^3uL Lymphocytes # (Auto) 4.3 x10^3/uL Monocytes # (Auto) 0.8 x10^3/uL Eosinophils # (Auto) 0.0 x10^3/uL Basophils # (Auto) 0.1 x10^3/uL Urine Collection Type Unknown Urine Color Yellow Urine Clarity Clear Urine pH 7.0 Urine Specific [place] 1.015 Urine Protein Neg Urine Glucose (UA) Neg mg/dL Urine Ketones (Stick) Neg mg/dL Urine Blood Trace Urine Nitrite Neg Urine Bilirubin Neg Urine Urobilinogen Dipstick 0.2 mg/dL Urine Leukocyte Esterase Neg Urine RBC 1-2 /HPF Urine WBC Occ /HPF Urine Squamous Epithelial Cells Few /LPF Urine Bacteria 0 /HPF Sodium Level 138 mmol/L Potassium Level 3.6 mmol/L Chloride Level 99 mmol/L Carbon Dioxide Level 27 mmol/L Anion Gap 12 Blood Urea Nitrogen 5 mg/dL Creatinine 0.9 mg/dL Estimated GFR (Cockcroft-Gault) 64.8 BUN/Creatinine Ratio 6 Glucose Level 78 mg/dL Calcium Level 8.8 mg/dL Total Bilirubin 0.2 mg/dL Aspartate Amino Transf (AST/SGOT) 11 U/L Alanine Aminotransferase (ALT/SGPT) 26 U/L Alkaline Phosphatase 142 U/L Total Protein 7.6 g/dL Albumin 4.0 g/dL Albumin/Globulin Ratio 1.1 Current Medications Medications (Trade) Dose Ordered Sig/Audrey Route PRN Reason Start Time Stop Time Status Last Admin Dose Admin Sodium Chloride 1,000 ml @ 1,000 mls/hr 1X ONCE IV 07/13/21 18:00 07/13/21 18:59 07/13/21 18:01 Ketorolac Tromethamine (Toradol 30mg Vial) 30 mg 1X ONCE IVP 07/13/21 18:00 07/13/21 18:01 DC 07/13/21 18:02 Ondansetron HCl (Zofran) 4 mg 1X ONCE IVP 07/13/21 18:00 07/13/21 18:01 DC 07/13/21 18:02 Vital Signs: Vital Signs Date Time Temp Pulse Resp B/P (MAP) Pulse Ox O2 Delivery O2 Flow Rate FiO2 07/13/21 18:30 84 18 93/61 (72) 97 Room Air 07/13/21 18:00 86 18 117/79 (92) 95 Room Air 07/13/21 17:39 98.3 92 18 120/78 (92) 99 Room Air Vital Signs Date Time Temp Pulse Resp B/P (MAP) Pulse Ox O2 Delivery O2 Flow Rate FiO2 07/13/21 17:39 98.3 92 18 120/78 (92) 99 Room Air (ROBERT FALLON APRN) EKG: EKG: [] (ROBERT FALLON DELPHI PROGRAMMER) Radiology/Procedures: Radiology/Procedures: REASON: r/o kidney stone PROCEDURE: CT ABDOMEN PELVIS WO CONTRAST EXAM: CT Abdomen and Pelvis without IV contrast CLINICAL HISTORY: Flank pain, evaluate for renal stone. COMPARISON: none TECHNIQUE: Helical CT of the abdomen and pelvis without intravenous contrast. Axial, coronal and sagittal reformatted images were generated. PQRS compliance statement - One or more of the following individualized dose reduction techniques were utilized for this study: 1. Automated exposure control 2. Adjustment of the mA and/or kV according to patient size 3. Use of iterative reconstruction technique FINDINGS: Lack of intravenous contrast limits evaluation of solid organs, vasculature, and lymph nodes. Lower chest: Lung bases are clear. Abdomen and Pelvis: No focal liver lesion. Cholecystectomy clips are seen. Pancreas, spleen and adrenal glands are unremarkable. No focal renal lesion. No hydronephrosis. No hydroureter. Bladder is unremarkable. Moderate colonic stool content is seen. No small or large bowel dilatation. No bowel obstruction. Moderate colonic stool content is seen. Prior appendectomy change. No abdominal or pelvic ascites. No abdominal or pelvic lymphadenopathy. Aortic calcifications are seen. Bones: No aggressive osseous lesion is seen. Degenerative changes of the spine are seen. IMPRESSION: No renal tract calculus. Electronically signed by: Guy Cotter MD (07/13/2021 6:29 PM) [facility] [] (ROBERT FALLON APRN) Heart Score: C/O Chest Pain: N/A Risk Factors: Risk Factors: DM, Current or recent (<one month) smoker, HTN, HLP, family history of CAD, obesity. Risk Scores: Score 0 - 3: 2.5% MACE over next 6 weeks - Discharge Home Score 4 - 6: 20.3% MACE over next 6 weeks - Admit for Clinical Observation Score 7 - 10: 72.7% MACE over next 6 weeks - Early Invasive Strategies (ROBERT FALLON APRN) Course & Med Decision Making: Course & Med Decision Making Pertinent Labs and Imaging studies reviewed. (See chart for details) 0 reviewed radiology and laboratory results with patient, informed her that there was no's evidence of a kidney stone or any other issues, I did state that she had moderate amount of stool in her colon which can be causing abdominal pain. Instructed patient to take 1 bottle of mag citrate tonight to help with constipation issues, I would start a regimen of MiraLAX if constipation becomes an issue follow-up with your primary care physician KARSTEN (ROBERT FALLON APRN) Marlynon Disclaimer: Dragisaías Disclaimer: This electronic medical record was generated, in whole or in part, using a voice recognition dictation system. (ROBERT FALLON APRN) Departure Departure: Impression: Primary Impression: Abdominal pain Qualified Codes: R10.84 - Generalized abdominal pain Additional Impression: Constipation Qualified Codes: K59.00 - Constipation, unspecified Disposition: HOME / SELF CARE / HOMELESS Condition: STABLE Referrals: DEYA HE (PCP) Patient Instructions: Abdominal Pain, Constipation, Adult Additional Instructions: Take 1 bottle of magnesium citrate tonight [id number] MiraLAX 1 capful daily starting tomorrow Ultram 50 mg take 1 tablet every 6 hours as needed for pain Flexeril 1 tablet every 8 hours as needed for muscle pain is with caution may cause drowsiness or dizziness Follow-up with your primary care physician by phone in the a.m. and see early next week for further management of your abdominal pain Scripts Cyclobenzaprine Hcl (CYCLOBENZAPRINE HCL) 10 Mg Tablet 1 TAB PO TID PRN PRN for PAIN, #12 TAB Prov: ROBERT FALLON APRN 07/13/21 Tramadol Hcl (ULTRAM) 50 Mg Tablet 1 TAB PO PRN Q6HRS PRN for pain MDD 2 Tablet(s), #20 TAB 0 Refills Prov: ROBERT FALLON APRN 07/13/21 Attending Signature Attending Signature I have reviewed the PA/MANAGEMENT INFORMATION SYSTEMS DIRECTOR's note and plan of care. I was available for consultation as needed during the patient's visit in the emergency department. I agree with the clinical impression, plan, and disposition. (BRAD JACINTO DO) ROBERT FALLON APRN Jul 13, 2021 17:52 BRAD JACINTO DO Jul 14, 2021 01:28
[2021-07-13] MEDS ORDERED: IV NORMAL SALINE 1,000ML 1,000 ML IV ONE (18:00)
[2021-07-13] MEDS ORDERED: ONDANSETRON PF 4 MG/2 ML VIAL. IVP ONE (18:00)
[2021-07-13] MEDS ORDERED: KETOROLAC 30 MG/ML VIAL. IVP ONE (18:00)
[2021-07-13 18:10] LABS: BASO # 0.1 x10^3/uL (0.0-0.2); BASO % 1 % (0-3); EOS % 0 % (0-3); HEMATOCRIT 43.4 % (36.0-47.0); HEMOGLOBIN 14.7 g/dL (12.0-15.5); LYMPH # 4.3 x10^3/uL (1.0-4.8); LYMPH % 40 % (24-48); MEAN CORPUSCULAR HEMOGLOBIN 30 pg (25-35); MEAN CORPUSCULAR HGB CONC 34 g/dL (31-37); MEAN CORPUSCULAR VOLUME 89 fL (79-100); MONO # 0.8 x10^3/uL (0.0-1.1); MONO % 8 % (0-9); NEUT # 5.7 x10^3uL (1.8-7.7); NEUT % 52 % (31-73); PLATELET COUNT 393 x10^3/uL (140-400); RED BLOOD COUNT 4.87 x10^6/uL (3.50-5.40); RED CELL DISTRIBUTION WIDTH 13.4 % (11.5-14.5); WHITE BLOOD COUNT 10.9 x10^3/uL (4.0-11.0)
[2021-07-13 18:16] LABS: CALCIUM 8.8 mg/dL (8.5-10.1); CREATININE 0.9 mg/dL (0.6-1.0); GFR 64.8; POTASSIUM 3.6 mmol/L (3.5-5.1)
[2021-07-13 18:17] LABS: BACTERIA,URINE 0 /HPF (0-FEW); BILIRUBIN,URINE NEG (NEG); CLARITY,URINE CLEAR; COLOR,URINE YELLOW; GLUCOSE,URINE NEG (NEG); NITRITE,URINE NEG (NEG); SQUAMOUS EPITHELIAL CELL,UR FEW /LPF; UROBILINOGEN,URINE 0.2 mg/dL (0.2 mg/dL); WBC,URINE OCC /HPF (0-4)
[2021-07-13 18:21] LABS: ALBUMIN/GLOBULIN RATIO 1.1 (1.0-1.7); TOTAL BILIRUBIN 0.2 mg/dL (0.2-1.0); TOTAL PROTEIN 7.6 g/dL (6.4-8.2)
[2021-07-13 18:30] VITALS: BP 93/61
--- NOTE | 2021-07-13 18:31 | RAD ---
EXAM: CT Abdomen and Pelvis without IV contrast CLINICAL HISTORY: Flank pain, evaluate for renal stone. COMPARISON: none TECHNIQUE: Helical CT of the abdomen and pelvis without intravenous contrast. Axial, coronal and sagi ttal reformatted images were generated. PQRS compliance statement - One or more of the following individualized dose reduction techniques wer e utilized for this study: 1. Automated exposure control 2. Adjustment of the mA and/or kV according to patient size 3. Use of iterative reconstruction technique FINDINGS: Lack of intravenous contrast limits evaluation of solid organs, vasculature, and lymph nodes. Lower chest: Lung bases are clear. Abdomen and Pelvis: No focal liver lesion. Cholecystectomy clips are seen. Pancreas, spleen and adrenal glands are unrema rkable. No focal renal lesion. No hydronephrosis. No hydroureter. Bladder is unremarkable. Moderate c olonic stool content is seen. No small or large bowel dilatation. No bowel obstruction. Moderate colo ashish stool content is seen. Prior appendectomy change. No abdominal or pelvic ascites. No abdominal or pelvic lymphadenopathy. Aortic calcifications are see n. Bones: No aggressive osseous lesion is seen. Degenerative changes of the spine are seen. IMPRESSION: No renal tract calculus. Electronically signed by: Guy Cotter MD (07/13/2021 6:29 PM) [facility]
[2021-07-13] MEDS ORDERED: CYCL10TA19 PO (19:28)
[2021-07-13] MEDS ORDERED: TRAM-48 PO (19:28)
== END 2021-07-13 19:40 | disposition home or self-care (01) ==
LOC: ER 17:30
DX: K59.00 Constipation, unspecified (principal); R10.84 Generalized abdominal pain; K21.9 Gastro-esophageal reflux disease without esophagitis; E78.00 Pure hypercholesterolemia, unspecified; I10 Essential (primary) hypertension; G43.909 Migraine, unspecified, not intractable, without status migrainosus; F17.210 Nicotine dependence, cigarettes, uncomplicated; Z87.442 Personal history of urinary calculi; Z90.89 Acquired absence of other organs; Z90.49 Acquired absence of other specified parts of digestive tract; Z90.710 Acquired absence of both cervix and uterus; Z90.722 Acquired absence of ovaries, bilateral; Z88.6 Allergy status to analgesic agent
CPT/HCPCS: 36415; 74176; 80053; 81001; 85025; 96361; 96374; 96375; 99284; J1885; J2405; J7030

== ENCOUNTER → 2021-07-28 | Emergency (ER) | payer MEDICAID ==
[2021-07-13 18:30] VITALS: BP 93/61
[~2021-07-28] MED LIST changes: +TRAM-48 PO
== END | disposition left against medical advice (07) ==
LOC: ER 18:04
DX: S61.219A Laceration without foreign body of unspecified finger without damage to nail, initial encounter (principal); Z53.21 Procedure and treatment not carried out due to patient leaving prior to being seen by health care provider

== ENCOUNTER → 2021-08-19 | Outpatient (CLI) | payer MEDICAID ==
--- NOTE | 2021-08-19 10:20 | RAD ---
EXAM: Chest, 2 views. HISTORY: Cough. COMPARISON: 07/06/2020 FINDINGS: 2 views of the chest are obtained. There is no infiltrate, pleural effusion or pneumothorax . The heart is normal in size. IMPRESSION: No acute pulmonary finding. Electronically signed by: Kezia Dunlap MD (08/19/2021 10:18 AM) [id number]
--- NOTE | 2021-08-19 10:21 | RAD ---
EXAM: Lumbar spine, 5 views. HISTORY: Pain. Fall. COMPARISON: None. FINDINGS: 5 views of the lumbar spine are obtained. There is no listhesis. The vertebral alexander are nor mal in height. There is degenerative endplate remodeling with spurring primarily at L2-L3. There is f acet arthropathy predominantly at L5-S1. There are incidental cholecystectomy clips. IMPRESSION: 1. Multilevel degenerative change, primarily at L2-L3. 2. No acute osseous finding. Electronically signed by: Kezia Dunlap MD (08/19/2021 10:19 AM) [id number]
== END ==
LOC: RAD 09:42
PROVIDERS: ATTEND Physician Assistant Medical
DX: M47.817 Spondylosis without myelopathy or radiculopathy, lumbosacral region (principal); R05.3 Chronic cough; Z90.49 Acquired absence of other specified parts of digestive tract
CPT/HCPCS: 71046; 72110

== ENCOUNTER 2021-12-12 22:22 | Emergency (ER) | payer OTHER ==
[~2021-12-12] VITALS: Ht 152.4 cm; Wt 88.7 kg
--- NOTE | 2021-12-12 22:45 | PHYS DOC ---
Past History Past Medical History: Anxiety, GERD, High Cholesterol, Hypertension, Kidney Stones, Migraines, Other Additional Past Medical Histor: hiatal hernia Past Surgical History: Appendectomy, Cholecystectomy, Hysterectomy, Oophorectomy Smoking: Cigarettes Alcohol Use: None Drug Use: None General Adult EDM: Chief Complaint: CHEST PAIN HPI: HPI: 56-year-old female presents with chest pain. Patient has been having intermittent chest pains for few weeks. She has talked with her doctor and is scheduled to see a registered nurse renal. She presents tonight because the intermittent pain has been more frequent today. Prior to arrival it became a sharp moderate intensity pain in her chest with some radiation to her arm. She decided she should not wait till morning and came in for evaluation. The patient has no formal history of cardiac disease. No stents or bypass. She has epigastric tenderness. She denies alcohol consumption. No history of pancreatitis. Her appendix and gallbladder are removed. She denies fever or chills. Review of Systems: Review of Systems: Constitutional: Denies fever or chills Eyes: Denies change in visual acuity HENT: Denies nasal congestion or sore throat Respiratory: Denies cough or shortness of breath Cardiovascular: Chest pain GI: Epigastric abdominal pain. Denies nausea, vomiting, bloody stools or diarrhea : Denies dysuria Musculoskeletal: Denies back pain or joint pain Integument: Denies rash Neurologic: Denies headache, focal weakness or sensory changes Endocrine: Denies polyuria or polydipsia Lymphatic: Denies swollen glands Psychiatric: Denies depression or anxiety Allergies: Allergies: Allergies Coded Allergies Type Severity Reaction Last Updated Verified naproxen Allergy Intermediate Rash 07/24/19 No Physical Exam: PE: Constitutional: Well developed, well nourished, morbidly obese, no acute distress, non-toxic appearance. [] HENT: Normocephalic, atraumatic, bilateral external ears normal, oropharynx moist, no oral exudates, nose normal. [] Eyes: PERRLA, EOMI, conjunctiva normal, no discharge. [] Neck: Normal range of motion, no tenderness, supple, no stridor. [] Cardiovascular: Heart rate 92, regular rhythm, no murmur [] Lungs & Thorax: Bilateral breath sounds clear to auscultation [] Abdomen: Bowel sounds normal, soft, epigastric tenderness, no masses, no pulsatile masses. [] Skin: Warm, dry, no erythema, no rash. [] Back: No tenderness, no CVA tenderness. [] Extremities: No tenderness, no cyanosis, no clubbing, ROM intact, no edema. [] Neurologic: Alert and oriented X 3, normal motor function, normal sensory function, no focal deficits noted. [] Psychologic: Affect normal, judgement normal, mood normal. [] EKG: EKG: Sinus rhythm, rate 99, normal axis, no ST elevation or depression. [] Radiology/Procedures: Radiology/Procedures: [] Heart Score: C/O Chest Pain: Yes HEART Score for Chest Pain: HEART Score for Chest Pain Response (Comments) Value History Slighlty/Non-Suspicious 0 ECG Normal 0 Age >45 - < 65 1 Risk Factors 1 or 2 Risk Factors 1 Troponin >3 x Normal Limit 2 Total 4 Risk Factors: Risk Factors: DM, Current or recent (<one month) smoker, HTN, HLP, family history of CAD, obesity. Risk Scores: Score 0 - 3: 2.5% MACE over next 6 weeks - Discharge Home Score 4 - 6: 20.3% MACE over next 6 weeks - Admit for Clinical Observation Score 7 - 10: 72.7% MACE over next 6 weeks - Early Invasive Strategies Course & Med Decision Making: Course & Med Decision Making Pertinent Labs and Imaging studies reviewed. (See chart for details) The patient's EKG is unremarkable. Her labs are unremarkable except for an elevated white count. Her troponin is negative. Her chest x-ray is negative for acute findings. She does not appear to be having a cardiopulmonary event at this time. She is stable for discharge. [] Dragon Disclaimer: Dragon Disclaimer: This electronic medical record was generated, in whole or in part, using a voice recognition dictation system. Departure Departure: Impression: Primary Impression: Chest pain Disposition: HOME / SELF CARE / HOMELESS Condition: STABLE Referrals: DEYA HE (PCP) Patient Instructions: Chest Pain (Nonspecific), [id number] ELLEN GORMAN DO December 12, 2021 22:45
[2021-12-12 22:46] VITALS: BP 135/81
[2021-12-12] MEDS ORDERED: PANTOPRAZOLE IV 40 MG VIAL. IVP ONE (23:00)
[2021-12-12] MEDS ORDERED: FAMOTIDINE 20 MG/2 ML VIAL IVP ONE (23:00)
[2021-12-12 23:11] LABS: BASO % 0 % (0-3); EOS % 0 % (0-3); HEMATOCRIT 41.4 % (36.0-47.0); HEMOGLOBIN 14.1 g/dL (12.0-15.5); LYMPH # 4.9 x10^3/uL (1.0-4.8); LYMPH % 32 % (24-48); MEAN CORPUSCULAR HEMOGLOBIN 31 pg (25-35); MEAN CORPUSCULAR HGB CONC 34 g/dL (31-37); MEAN CORPUSCULAR VOLUME 90 fL (79-100); MONO # 0.9 x10^3/uL (0.0-1.1); MONO % 6 % (0-9); NEUT # 9.4 x10^3uL (1.8-7.7); NEUT % 62 % (31-73); PLATELET COUNT 412 x10^3/uL (140-400); RED BLOOD COUNT 4.61 x10^6/uL (3.50-5.40); RED CELL DISTRIBUTION WIDTH 13.7 % (11.5-14.5); WHITE BLOOD COUNT 15.2 x10^3/uL (4.0-11.0)
[2021-12-12 23:30] LABS: CREATININE 0.8 mg/dL (0.6-1.0); GFR 74.2; POTASSIUM 4.1 mmol/L (3.5-5.1)
--- NOTE | 2021-12-12 23:33 | EKG ---
[address] [address] Test Date: 2021-12-12 Test Time: 22:30:10 Pat Name: SANTI MIRANDA Department: Room: Gender: F Tire Molder: : [id number] Requested By: ELLEN GORMAN Order Number: [id number] Reading MD: Blayne Jett Measurements Intervals Jonancy Rate: 92 P: 48 GA: 146 QRS: 26 QRSD: 80 T: 58 QT: 344 QTc: 430 Interpretive Statements SINUS RHYTHM Electronically Signed On 12-14-2021 17:14:00 CDT by Blayne Jett
[2021-12-12 23:36] LABS: ALBUMIN 3.6 g/dL (3.4-5.0); ALBUMIN/GLOBULIN RATIO 1.2 (1.0-1.7); TOTAL BILIRUBIN 0.2 mg/dL (0.2-1.0); TOTAL PROTEIN 6.6 g/dL (6.4-8.2)
[2021-12-12 23:49] LABS: % LYMPHS 43 % (24-48); % MONOS 1 % (0-10); % SEGS 56 % (35-66); PLT ESTIMATE ADEQUATE (ADEQUATE)
--- NOTE | 2021-12-13 00:36 | RAD ---
EXAM: XR CHEST 1V 12/12/2021 10:41 PM CLINICAL INDICATION: Chest pain COMPARISON: Chest radiograph 08/19/2021 TECHNIQUE: AP upright view of the chest FINDINGS: The heart is normal in size. Lungs are adequately expanded. No consolidation, pleural effu candi, or pneumothorax. IMPRESSION: No acute cardiopulmonary abnormality. Electronically signed by: Kallie Agustin MD (12/13/2021 12:33 AM) [facility]
== END 2021-12-13 00:54 | disposition home or self-care (01) ==
LOC: ER 22:22
DX: R07.89 Other chest pain (principal); R10.13 Epigastric pain; K21.9 Gastro-esophageal reflux disease without esophagitis; E78.00 Pure hypercholesterolemia, unspecified; I10 Essential (primary) hypertension; G43.909 Migraine, unspecified, not intractable, without status migrainosus; F41.9 Anxiety disorder, unspecified; F17.210 Nicotine dependence, cigarettes, uncomplicated; Z87.442 Personal history of urinary calculi; Z90.49 Acquired absence of other specified parts of digestive tract; Z90.89 Acquired absence of other organs; Z90.710 Acquired absence of both cervix and uterus; Z88.6 Allergy status to analgesic agent
CPT/HCPCS: 36415; 71045; 80053; 83690; 84484; 85007; 85025; 93005; 99285